=== PATIENT | male | born 1990 | race Caucasian/White ===

== ENCOUNTER 2017-06-10 16:32 | Emergency (ER) | payer MEDICAID, SELFPAY ==
[2017-06-10 16:33] VITALS: BP 131/77; PULSE 87; RESP 16; TEMP 36.6; O2SAT 99; BMI 22.1
--- NOTE | 2017-06-10 16:46 | ED.DCSUM_ITS ---
- ER Visit Summary Date of Service: 06/10/17 Chief Complaint: Eye redness, itching, drainage History of Present Illness: The patient is a 26 M who noted left eye irritation 2 days ago. Yesterday had redness and burning sensation in both eyes. He has had tearing and drainage. Eyelashes are matted when he wakes from sleep. He has had mild cough and runny nose recently. He has not been around anyone else with similar symptoms. He does not wear glasses or contacts. He states today his vision seems somewhat hazy. Physical Examination: Vital signs are unremarkable. Patient sitting in a well lit room in no acute distress. Head neck examination reveals eyelids to be unremarkable. He has diffuse bilateral conjunctival injection. He has tearing noted at this time. Pupils are equal and reactive with full extraocular movements. Heart is regular rate and rhythm. Lung sounds are clear. Test Results: [] Emergency Department Course and Treatment: The patient I believe he has conjunctivitis. This can be bacterial, viral, or allergic in nature. He will be treated with gentamicin eyedrops. He is referred to ophthalmology if not improving. Treatment Plan: [] Disposition: Discharge Impression: Bilateral conjunctivitis This note was generated with [employer] dictation software. It may contain incorrect words, spelling, and punctuation that were not noted in review of the chart prior to signing ED Disposition - Plan for ED Patient: Chief Complaint: Eye Problem Referrals: NOT,DEFINED [Primary Care Provider] -
--- NOTE | 2017-06-10 16:46 | ED.DEP ---
ED Disposition - Plan for ED Patient: Disposition: Home or Assisted Living Chief Complaint: Eye Problem Instructions: ED Conjunctivitis Nonspecific Referrals: Omar Beatty MD [STAFF PHYSICIAN] - 3-5 Days if not improving
--- OUTSIDE RECORDS SUMMARY | 2017-06-10 16:57 | XMS RPT_ITS ---
:1990 Author Organization [facility] Care Team Providers Name Role Phone Bridgett Brooks Attending Unavailable Primay Care Physicia, No Primary Care Unavailable PROBLEMS PROBLEMS No Problem Records FoundPROCEDURES PROCEDURES No Procedure Records FoundRESULTS RESULTS DISCHARGE INSTRUCTION Observed: 06/10/2017 Status: F Source: [facility]HA 4:46 PM [facility] REPOSITORY [facility] [id number] [place] [address]Xtttbhima Dwdkbkvxsua12/25/18 1646MR#: [id number] Acct: [id number]: JOSHUA PERRY Rep #: [id number]: 1990 26 From: Bridgett Brooks MDPCP: NOT, DEFINED Status: PRE ERED Disposition- Plan for ED Patient:Disposition: Home or Assisted LivingChief Complaint: Eye ProblemInstructions: ED Conjunctivitis NonspecificReferrals:Omar Beatty MD [STAFF PHYSICIAN] - 3-5 Days if not improvingWhat to do if you have ProblemsFor any increased pain, shortness of breath, bleeding, nausea or vomiting, chest pain, or anyunexpected problems, contact your Primary Care Provider. Call [facility] ([phone])or report to the closest Emergency Room.Call 911 if necessary.06/10/171645 <Electronically signed by Bridgett Brooks MD>Date Bridgett Brooks MDCosigner Signature (If Indicated): Date CC: DEFINED NOT ALLERGIES ALLERGIES DATE TYPE / CODE NAME / CODE REACTION SEVERITY SOURCE 06/10/2017 Drug No Known Unknown [facility] Allergy/4160 Allergies/F00 [facility] [address](SNOMED [id number](RXNOR Repository CT) M) ENCOUNTERS ENCOUNTERS ADMIT/DISCHARGE ACCOUNT ADMITTING ENCOUNTER LOCATION SOURCE NUMBER CLASS 06/10/2017 [id number] Emergency [facility] ing:ED Repository PAYERS PAYERS ENCOUNTER GUARANTOR PAYER SUBSCRIBER SOURCE 06/10/2017 JOSHUA Mcdonnell Primary JOSHUA M [place] [id number] Insurance:CARESOURCEP BRECAYDENERDOB: Community CARRIAGE [facility] Number: [id number] .Effective Repository [address]Izx: [phone] Date:2017-06-10P O [phone] () [address]ATTN: [place] [address]IC: 06/10/2017 Secondary NOT GIVENUNK [place] Insurance:SELF [facility]: Effective Repository Date:2017-06-10
[2017-06-10] MEDS: Gentamicin Sulfate 1 OPTH.BTL 2 DRP EACH EYE (17:16)
== END 2017-06-10 17:18 | disposition home or self-care (01) ==
LOC: ED 16:55
PROVIDERS: Emergency Provider Emergency Medicine
DX: H10.9 Unspecified conjunctivitis (principal)
CPT/HCPCS: 99282

== ENCOUNTER 2017-06-17 18:56 | Emergency (ER) | payer MEDICAID, SELFPAY ==
[2017-06-17 18:58] VITALS: BP 120/62; PULSE 87; RESP 17; TEMP 36.9; O2SAT 96; BMI 22.3
--- OUTSIDE RECORDS SUMMARY | 2017-06-17 19:30 | XMS RPT_ITS ---
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 Cannabinoid, Urine Result Comment: Tetrahydrocannabinol carboxylic acid (THCA) is a metabolite of cggpn-3-bdmfiudcyrrgsuzeenug which is the main active component of marijuana. Presence of THCA indicates use of marijuana. LAB UQCREA >19 mg/dL Creatinine, >50 Urine LAB UQPH 4-10 pH, Urine 4-10 LAB UQSPGR 1.005-1.020 Specific 1.005-1.020 [place] LAB UQOXID Negative Oxidants, Urine Negative LAB UQSPQ Specimen Specimen Quality quality results within acceptable limits. LAB UMNOTE Note This test is for Medical use only. Result Comment: This test was developed and its performance characteristics determined by [facility] Laboratory Medicine [place] ([facility]).It has not been cleared or approved by the FDA. [facility] is regulated under CLIA as qualified to perform high-complexity testing.This test is used for clinical purposes. It should not be regarded as investigational or for research. Performed By: #### [facility] ####[facility] [place], [place] [phone] OPIATE CONFIRM, UR Collected: 09/20/2016 Status: F Source: [place] 1:39 AM CLINIC OTHER CAMPUS REPOSITORY TYPE CODE TESTS RESULT OUT OF REFERENCE UNITS RANGE LAB UQACMR High <5 ng/mL 188 6-Acetylmorp betsy, Ur Result Comment: 6-MATEO (6-monoacetylmorphine, also known as 6-acetylmorphine) is a unique metabolite of heroin. Presence of 6-MATEO indicates use of heroin. 6-MATEO is further metabolized to morphine and absence of 6-MATEO does not rule out the use of heroin. LAB UQCODE High <11 ng/mL Codeine, Urine 60 Result Comment: Codeine is not a recognized metabolite of other opiates and its presence indicates use of a codeine containing drug. Codeine is metabolized to morphine. Illicit use of heroin is indicated when 1) both codeine and morphine are detected in urine, and 2) morphine concentration is over 15280 ng/mL, and 3) qdyouuwp-am-sclgpzr ratio is above 2. LAB UQMORP High <10 ng/mL Morphine, >5365 Urine Result Comment: Morphine may arise from morphine containing drugs, poppy seeds , or by metabolism of codeine and heroin. Morphine is metabolized to hydromorphone. LAB UQDCDN <5 ng/mL Dihydrocodeine, Ur <5 LAB UQHCOD <8 ng/mL Hydrocodone, Urine <8 Result Comment: Hydrocodone is a metabolite of dihydrocodeine. LAB UQOXYC <5 ng/mL Oxycodone, <5 Urine LAB UQHMOR <5 ng/mL Hydromorphone, <5 Ur Result Comment: Hydromorphone is a metabolite of hydrocodone. LAB UQOXYM <5 ng/mL Oxymorphone, Urine <5 Result Comment: Oxymorphone is a metabolite of oxycodone. LAB UQCREA >19 mg/dL Creatinine, >50 Urine LAB UQPH 4-10 pH, Urine 4-10 LAB UQSPGR 1.005-1.020 Specific 1.005-1.020 [place] LAB UQOXID Negative Oxidants, Urine Negative LAB UQSPQ Specimen Specimen Quality quality results within acceptable limits. LAB UPNOTE Note This test is for Medical use only. Result Comment: This test was developed and its performance characteristics determined by [facility] Pathology and Laboratory Medicine [place] ([facility]).It has not been cleared or approved by the FDA. [facility] is regulated under CLIA as qualified to perform high-complexity testing.This test is used for clinical purposes. It should not be regarded as investigational or for research. Performed By: #### OPICON ####[facility] [address] [place], [place] [phone] ED PROV NOTE Observed: 09/20/2016 Status: COMPLETED Source: [place] 1:32 AM CLINIC OTHER CAMPUS REPOSITORY HNO ID: [id number]: June Polanco, MDService: Emergency MedicineAuthor Type: PhysicianType: ED Provider NotesFiled: 09/20/2016 3:03 AMNote Text:ED Provider NotePatient Name: Joshua ZuñigaN: [id number] DATE: 09/20/16HistoryPatient presents with:UnresponsiveHPIThis is a 26-year-old heroin user who was found unresponsive by EMS. Hewas given 2 mg of Narcan and woke up completely. The patient denies usingany heroin today. He states that he bought a cigarette from someone andsmoked it, and that is all he remembers. He currently has no symptoms.PAST MEDICAL HISTORYDiagnosis Date- Attn deficit w/ hyperact- Back injury Pt was 14 years old, lower back pain- Bipolar I disorder, most recent episode ( or current) unspecified- Epilepsy (HCC)- History of kidney stones- Renal disorderPAST SURGICAL HISTORY11/04/2012: PAST SURGICAL HISTORY OF Comment: Repair of jaw fracture, placement of arch barsFAMILY HISTORY Hypertension Maternal Grandmother Hypertension Maternal Grandfather Stroke Maternal GrandfatherSocial History Marital status: Single Spouse name: Years of education: Number of children:Social History Main Topics Smoking status: Current Every Day Smoker Packs/day: 1.00 Years: 0.00 Types: Cigarettes Smokeless status: Never Used Alcohol use: No Drug use: Yes Special: Marijuana Comment: prior opiate addiction, sober since 02/21/2013 Sexual activity: Yes Comment : condoms all the timeSocial History Narrative Going into 12th grade, planning on playing hockey; considering going [employer] to be a nurse Lives w/grandparentsALLERGIESAllergen Reactions- Bees- Flexeril [Cyclobenz* Unknown- Tramadol RashReview of SystemsConstitutional: Negative for chills and fever.HENT: Negative for sore throat.Eyes: Negative for photophobia.Respiratory : Negative for cough and shortness of breath.Cardiovascular: Negative for chest pain.Gastrointestinal: Negative for abdominal pain, diarrhea, nausea andvomiting.Genitourinary: Negative for urgency.Musculoskeletal: Negative for back pain.Skin: Negative for rash.Neurological: Negative for dizziness, light- headedness and numbness.Psychiatric/Behavioral: Negative for confusion.All other systems reviewed and are negative.Physical ExamBP 145/97 Pulse 123 Temp (Src) 99.9 (Oral) Resp 13 Ht 6' 3(1.91m) Wt 175 lb (79.4kg) SpO2 93% BMI 21.87 kg/(m2).Physical ExamConstitutional: He is oriented to person, place, and time. He appearswell-developed.HENT:Head: Normocephalic.Eyes: Pupils are equal, round, and reactive to light.Neck: Normal range of motion.Cardiovascular: Normal rate and normal heart sounds.Pulmonary/Chest: Effort normal. No respiratory distress. He has nowheezes.Abdominal: Soft. He exhibits no distension. There is no tenderness.Musculoskeletal: Normal range of motion.Neurological: He is alert and oriented to person, place, and time.Skin: Skin is warm.Psychiatric: He has a normal mood and affect. His behavior is normal.Diagnostic TestingED Labs Ordered and ReviewedURINE DRUG SCREEN (AV,EU,FV,HL,BALDO,MM,SP) - Abnormal; Notable for thefollowing: Result Value Ref Range Cocaine Urine Positive (*) Negative THC Positive (*) Negative Opiates Positive (*) Negative All other components within normal limitsCOCAINE CONFIRMATION UR (BALDO,MM)CANNABINOID CONF UR (BALDO,MM)OPIATES CONFIRMATION UR (BALDO,MM)ProceduresMedical Decision Making / ED CourseED CourseThe patient was monitored without event.Encounter Diagnosis ICD-10-CM1. Heroin overdose, accidental or unintentional, initial [id number]: Aashish Neri MD09/20/16 0303 ED NOTE Observed: 09/20/2016 Status: COMPLETED Source: [place] 1:26 AM CLINIC OTHER CAMPUS REPOSITORY HNO ID: [id number]: Ariadne (Rn) TERRI Bedoyaervice : (none)Author Type: Registered NurseType: ED NotesFiled: 09/20/2016 1:29 AMNote Text:Patient arrived to the ED via squad unresponsive squad administered narcan2 doses. Patient stated I bummed a cigarette off of someone one the streetand I woke up in the squad I think it may have been laced with something.Patient is a heroine user but states in recovery currently. Patient deniestaking any drugs or medications and denies any chest pain and SOB.Pulse (!) 123 Temp (!) 37.7 ?C (99.9 ?F) (Oral ) Resp 13 Ht 190.5 cm(6' 3) Wt 79.4 kg (175 lb) SpO2 (!) 93% BMI 21.87 kg/m2 BP 145/97Plan of care-Monitor Patient's Vital Signs for changes in condition- Monitor patient for changes in pain-Maintain patient safety and privacy-Provide comfort measures-Call light in placeSiderails up, bed in locked and low position ED NOTE Observed: 09/20/2016 Status: COMPLETED Source: [place] 1:21 AM [facility] REPOSITORY HNO ID: [id number]: Ariadne (Rn) TERRI Bedoyaervice : (none)Author Type: Registered NurseType: ED NotesFiled: 09/20/2016 2:45 AMNote Text: Patient spo2 low at 93% applied 2L NC ED NOTE Observed: 09/15/2016 Status: COMPLETED Source: [place] 1:48 AM [facility] REPOSITORY HNO ID: [id number]: Vonnie Bonilla (Rn) TERRI Dumontervice: (none)Author Type: Registered NurseType: ED NotesFiled: 09/15/2016 1:48 AMNote Text:D/c instructions reviewed with pt. Pt verbalized understanding ofdiagnosis, treatment, importance of follow-up, and s/s that would warranta return to the ED. ED PROV NOTE Observed: 09/15/2016 Status: COMPLETED Source: [place] 12:48 AM [facility] REPOSITORY HNO ID: [id number]: Francis Rucker, DOService: (none)Author Type: PhysicianType: ED Provider NotesFiled: 09/16/2016 9:51 AMNote Text:ED Provider NotePatient Name: Joshua Casiano: [id number] DATE: 09/14/16HistoryPatient presents with:OverdoseHPI Comments: 26 year old male past medical history of bipolar disorderADHD chronic low back pain tobacco abuse, history of opiate addictionincluding heroin abuse presents with concern for substance overdose.Patient states he bough two hand rolled cigarettes from individual andstarted smoking one of them and the next thing he remembers is waking upwith paramedics at his side. He did require 2 mg of narcan to regainnormal level of consciousness. Patient denies complaints upon arrivalincluding chest pain, dyspnea, abdominal pain, fever, chills, sweats, orMSK pain. No recent illness. Patient currently on suboxone. Denies SI.History provided by: PatientLanguage principal electrical engineer used: NoPAST MEDICAL HISTORYDiagnosis Date- Attention deficit disorder with hyperactivity(314.01)- Back injury Pt was 14 years old, lower back pain- Bipolar I disorder, most recent episode (or current) unspecified- Epilepsy (HCC)- History of kidney stones- Renal disorderPAST SURGICAL HISTORY11/04/2012: PAST SURGICAL HISTORY OF Comment: Repair of jaw fracture, placement of arch barsFAMILY HISTORY Hypertension Maternal Grandmother Hypertension Maternal Grandfather Stroke Maternal GrandfatherSocial History Marital status: Single Spouse name: Years of education: Number of children:Social History Main Topics Smoking status: Current Every Day Smoker Packs/day: 1.00 Years: 0.00 Types : Cigarettes Smokeless status: Never Used Alcohol use: No Drug use: Yes Special: Marijuana Comment: prior opiate addiction, sober since 2012 Sexual activity: Yes Comment: condoms all the timeSocial History Narrative Going into 12th grade, planning on playing hockey; [facility] [facility] [employer] [facility] Lives w/grandparentsALLERGIESAllergen Reactions- Bees- Flexeril [Cyclobenz* Unknown- Tramadol RashReview of SystemsConstitutional: Negative.HENT: Negative.Eyes: Negative.Respiratory: Negative.Cardiovascular: Negative.Gastrointestinal: Negative.Genitourinary: Negative.Musculoskeletal: Negative.Skin: Negative.Neurological: Negative.Psychiatric/Behavioral: Negative.Physical ExamBP 158/91 Pulse 107 Resp 20 Ht 6' 0 (1.83m) Wt 150 lb (68.0kg) SpO2 97% BMI 20.34 kg/(m2).Physical ExamConstitutional: He is oriented to person, place, and time. He appearswell-developed and well-nourished.HENT:Head: Normocephalic and atraumatic.Eyes: Conjunctivae and EOM are normal. Pupils are equal, round, andreactive to light. No scleral icterus.Neck: Normal range of motion. Neck supple.Cardiovascular: Regular rhythm, normal heart sounds and intact distalpulses. Exam reveals no gallop and no friction rub.No murmur heard.Tachycardic ratePulmonary/Chest: Effort normal and breath sounds normal. No respiratorydistress. He has no wheezes. He has no rales. He exhibits no tenderness.Abdominal: Soft. Bowel sounds are normal. He exhibits no distension and nomass. There is no tenderness. There is no rebound and no guarding.Musculoskeletal: Normal range of motion. He exhibits no edema ortenderness.Lymphadenopathy: He has no cervical adenopathy.Neurological: He is alert and oriented to person, place, and time. Nocranial nerve deficit.Skin: Skin is warm and dry. No rash noted. No erythema.Psychiatric: He has a normal mood and affect. His behavior is normal.Nursing note and vitals reviewed.Diagnostic TestingED Labs Ordered and ReviewedCBC + AUTO DIFF (AV,EU,FV,HL,BALDO,MM,SP)COMPREHENSIVE METABOLIC PANEL (AV,EU,FV,HL,BALDO,MM,SP) WBC 21EKG ordered and interpreted as sinus tachycardia rate of 107 noappreciable acute ischemic changesProceduresMedical Decision Making / ED CourseIV startedTreated with IV fluidsNursing notes and vital signs reviewedTriage notes reviewedPlaced on cardiac monitorED CourseTachycardic upon arrival. Alert and oriented. No complaints. Normal levelof consciousness upon arrival. No evidence of traumatic injury. Physicalexam unremarkable other than tachycardia. EKG confirms sinus tachycardia.Treated with IV fluids with improvement of pulse. Bloodwork with elevatedWBC and mildly elevated liver enzymes. No evidence of bacterial infectionclinically in regards to leukocytosis. Skin without abscess/cellulitis,lungs clear, abdomen benign, denies change in urine or bowel habits.Leukocytosis possibly stress response. Leukocytosis possibly secondary tostress response. Patient monitored in dept for over two hours withimprovement of heart rate and no depression of mental status orrespiratory status. No complaints on serial re-examinations. Dischargehome in stable condition with f/up by PCP within 2-3 days and previouslyest GI specialist for elevated liver enzymes monitoring. Returnimmediately with any nwe worsening or concerning symptoms. Patient updatedand agreeable to plan. All questions answered at bedside. Discharge home.Encounter Diagnosis ICD-10-CM1. Opiate overdose, accidental or unintentional, initial rmdskilrzS29.601APlanThe Patient was DISCHARGED: Counseled patient regarding lab results ANDneed for follow-up. Discharged home with verbal and written instructions.They were instructed to return as needed for persistent or worseningsymptoms or any new concerns.Condition at time of disposition: stableSIGNATURE: Geronimo Ashley, DO09/16/16 0951 COMP METABOLIC PANEL Collected: 09/15/2016 Status: F Source: [place] 12:27 AM CLINIC OTHER CAMPUS REPOSITORY TYPE CODE TESTS RESULT OUT OF REFERENCE UNITS RANGE LAB TP 6.6-8.7 g/dL Protein, Total 7.8 LAB ALB 4.0-4.9 g/dL Albumin 4.7 LAB CA 8.5-10.2 mg/dL Calcium, Total 9.0 LAB TBIL 0.0-1.2 mg/dL Bilirubin, 0.3 Total LAB ALKP 40-130 U/L Alkaline 59 Phosphatase LAB AST High 0-40 U/L AST 45 LAB GLU High 74-99 mg/dL Glucose 125 LAB BUN 6-20 mg/dL BUN 15 LAB CRET 0.67-1.17 mg/dL Creatinine 1.02 LAB NA 136-144 mmol/L Sodium 143 LAB K 3.4-4.5 mmol/L Potassium 3.5 LAB CL 98-107 mmol/L Chloride 104 LAB CO2 22-29 mmol/L CO2 25 LAB AGAP 0-15 mmol/L Anion Gap 14 LAB ALT High 0-41 U/L ALT 99 LAB GFRAA >60 eGFR- Amer. >60 LAB GFRNAA >60 . eGFR-All Other Races >60 Result Comment: eGFR (Estimated GFR) Units of measure: mL/min/1.73 meters squaredeGFR is derived from the 4 variable MDRD equation for glomerular filtration rate ( GFR) based on a stable serum creatinine, gender, and age.According to KDOQI guidelines, an eGFR <60 mL/min/1.73m2 is sufficient to diagnose a patient with chronic kidney disease. Performed By: #### CMP, CBCDIF ####[facility] [place], [place] [phone] CBC AND DIFFERENTIAL Collected: 09/15/2016 Status: F Source: [place] 12:27 AM CLINIC OTHER CAMPUS REPOSITORY TYPE CODE TESTS RESULT OUT OF REFERENCE UNITS RANGE LAB WBC High 3.70-11.00 k/uL WBC 21.05 LAB RBC 4.20-6.00 m/uL RBC 4.22 LAB HGB Low 13.0-17.0 g/dL Hemoglobin 12.8 LAB HCT 39.0-51.0 % Hematocrit 39.7 LAB MCV 80.0-100.0 fL MCV 94.1 LAB MCH 26.0-34.0 pG MCH 30.3 LAB MCHC 30.5-36.0 g/dL MCHC 32.2 LAB RDWCV 11.5-15.0 % RDW-CV 14.2 LAB PLTCT 150-400 k/uL Platelet 222 Count LAB MPV 9.0-12.7 fL MPV 10.7 LAB NEUT % Neut% 88 LAB LYMPH % Lymph% 6 LAB PMON % [place]% 5 LAB MYELO % Myelo% 1 LAB ABNEUT High 1.9-8.0 k/uL Abs Neut 18.52 LAB ABLYM 0.9-5.2 K/uL Abs Lym 1.26 LAB ABMONO High 0.16-1.00 k/uL Abs [place] 1.05 LAB RBCMOR Red Cell SEE Morph COMMENT Result Comment: Normal LAB LFTIMI Left Shift Present LAB PLTEST Platelet Platelet Estimate estimate adequate Performed By: #### CMP, CBCDIF ####[facility] [place], [place] [phone] ED NOTE Observed: 09/14/2016 Status: COMPLETED Source: [place] 11:19 PM [facility]INIC OTHER [place] REPOSITORY HNO ID: [id number]: Reji (Rn) Elbert Paredesice: (none)Author Type: Registered NurseType: ED NotesFiled: 09/14/2016 11:20 PMNote Text:Pt arrives via EMS after drug overdose. Pt denies using heroin. States hebought a cigarette from someone. Ems states pt became responsive afterreceiving 2mg Narcan. Pt alert and oriented upon arrival to ED. Policeofficers at bedside.Plan of care-Monitor Patient's Vital Signs-Monitor pain-Maintain patient safety and privacy-Provide comfort measures as needed-Call light in place-Siderails up, bed in locked and low position. ED NOTE Observed: 09/14/2016 Status: COMPLETED Source: [place] 11:14 PM CLINIC OTHER CAMPUS REPOSITORY HNO ID: [id number]: Mireya Mcdonnell (Rn) Elbert Benoitice: (none)Author Type: Registered NurseType: ED NotesFiled: 09/14/2016 11:14 PMNote Text:Bed: ED-01Expected date:Expected time:Means of arrival:Comments:EMS EKG Observed: 08/06/2016 Status: F Source: [facility] 2:15 PM [facility] REPOSITORY Acquired on 08/03/2016 1237Vent. Rate : 071 BPM Atrial Rate : 071 BPMP-R Int : 162 ms QRS Dur : 084 msQT Int : 378 ms P-R-T Axes : 048 086 074 degreesQTc Int : 410 msNormal sinus rhythmLow voltage QRSBorderline ECGWhen compared with ECG of 11-JUL-2016 15:08,No significant change was foundConfirmed by JAYANT LEYVA MD ([id number]) on 08/06/2016 2:15:56 PMReferred By: Confirmed By: JAYANT CHING [id number] 2016 --------[facility] PT NAME: JOSHUA PERRY MMR#: [id number] [place] [address] ACCT: [id number]: 91EKG REPORT EKG Observed: 08/06/2016 Status: F Source: [facility] 2:15 PM [facility] REPOSITORY Acquired on 08/03/2016 [address]. Rate : 071 BPM Atrial Rate : 071 BPMP-R Int : 162 ms QRS Dur : 084 msQT Int : 378 ms P-R-T Axes : 048 086 074 degreesQTc Int : 410 msNormal sinus rhythmLow voltage QRSBorderline ECGWhen compared with ECG of 11-JUL-2016 15:08,No significant change was foundConfirmed by JAYANT LEYVA MD ([id number]) on 08/06/2016 2:15:56 PMReferred By: Confirmed By: JAYANT CHING [id number] 2016 --------[facility] PT NAME: JOSHUA PERRY MMR#: [id number] [place] [address] ACCT: [id number]: 91EKG REPORT COMP META PANEL Collected: 08/03/2016 Status: F Source: [facility] 12:52 PM [facility] REPOSITORY Order Comment: CONSERVATION TYPE CODE TESTS RESULT OUT OF RANGE REFERENCE UNITS LAB L500.94916 Normal 136-145 mmol/L NA 140 LAB L500.47052 Normal 3.5-5.1 mmol/L K 4.7 LAB L500.27576 High 98-107 mmol/L CL 108 LAB L500.02108 Normal 21-32 mmol/L CO2 29 LAB L500.90351 Normal 74-106 mg/dL GLU 75 LAB L500.47460 High 7-18 mg/dL BUN 26 LAB L500.93504 Normal 0.700-1.300 mg/dL CREAT 0.965 LAB L500.23757 Normal 6.4-8.2 gm/dL TP 7.3 LAB L500.06009 Normal 3.4-5.0 gm/dL ALB 3.6 LAB L500.62753 Normal 8.5-10.1 mg/dL CA 8.8 LAB L500.75156 Normal 0.2-1.0 mg/dL BILI 0.5 TOTAL LAB L500.00421 High 15-37 U/L AST 44 LAB L500.27427 Normal 13-61 U/L ALT 60 LAB L500.93320 Normal 45-117 U/L ALK 84 PHOS TOTAL Performed By: #### L500.73949, L500.02925 ####Test performed at: [place] [address] GFR ESTIMATE Collected: 08/03/2016 Status: F Source: [facility] 12:52 PM [facility] REPOSITORY Order Comment: CONSERVATION TYPE CODE TESTS RESULT OUT OF RANGE REFERENCE UNITS LAB L500.60470 Normal > 60 IF > non-AFR AMER 60 LAB L500.23866 Normal > 60 IF > AMER 60 Result Comment: eGFR (Estimated GFR) Units of measure:mL/min/1.73 meters sq.*CALCULATION REVISED 01/05/2015;IDMS-traceable MDRD equationeGFR is derived from the reexpressed MDRD Study equationusing the following parameters: serum creatinine, age,gender and race. An eGFR<60 mL/min/1.73m2 for >3 monthsis consistent with chronic kidney disease. Refer to KDOQIguidelines for clinical interpretation. Performed By: #### L500.57113, L500.96921 ####Test performed at: [place] [address] CBC W/DIFF Collected: 08/03/2016 Status: F Source: [facility] 12:52 PM [facility] REPOSITORY Order Comment: CONSERVATION TYPE CODE TESTS RESULT OUT OF RANGE REFERENCE UNITS LAB L200.22349 High 3.9-11.0 K/uL WBC 11.5 LAB L200.25452 Normal 3.5-5.5 M/uL RBC 4.25 LAB L200.06609 Low 14.0-16.5 g/dL HGB 12.6 LAB L200.25579 Low 39.0-55.0 % HCT 38.4 LAB L200.60946 Normal 80.0-100.0 fL MCV 90.4 LAB L200.95252 Normal 25.4-34.6 pg MCH 29.6 LAB L200.76844 Normal 31.5-36.5 g/dL MCHC 32.8 LAB L200.78960 Normal 11.5-14.5 % RDW 14.1 LAB L200.12722 Normal 140-440 K/uL PLT 238 LAB L200.60732 Normal 8.7-12.4 fL MPV 9.9 LAB L200.54138 Normal 0-0.2 /100 WBC NRBC 0.0 % LAB L200.48376 Normal 0-0.012 K/uL NRBC 0.000 # Performed By: #### L200.94602, L200.59647, L200.57656 ####[place] performed [place]: [place] [id number] MANUAL DIFF Collected: 08/03/2016 Status: F Source: [facility] 12:52 PM [facility] REPOSITORY Order Comment: CONSERVATION TYPE CODE TESTS RESULT OUT OF RANGE REFERENCE UNITS LAB L200.37709 Normal #CELLS TOTAL CELLS 100 LAB L200.94980 Low 40-80 % NEUTROPHIL 30 LAB L200.41269 High 0-5 % BAND 23 LAB L200.67199 Normal 20-50 % LYMPH 41 LAB L200.73262 Normal 2-12 % MONOCYTE 5 LAB L200.29576 Normal 0-5 % EOS 1 LAB L200.46181 Normal RBC COMMENTS NORM MORPH LAB L200.41769 Normal RLYMPH 3+ LAB L200.04468 Normal PLT EST ADEQ Performed By: #### L200.02728, L200.17916, L200.45697 ####Test performed at: [place] [address] SMEAR REVIEW Collected: 08/03/2016 Status: F Source: [facility] 12:52 [facility] REPOSITORY Order Comment: CONSERVATION TYPE CODE TESTS RESULT OUT OF RANGE REFERENCE UNITS LAB L200.40362 Normal SMEAR REVIEW Result Comment: Reactive lymphocytosis.MD LASHAY Performed By: #### L200.64459, L200.37918, L200.97484 ####Test performed at: [place] [address] EKG Observed: 08/03/2016 Status: P Source: [facility] 12:42 [facility] REPOSITORY This is a preliminary report only. This report will be final only after practitioner review and authentication has occurred.Acquired on 2016 1237Vent. Rate : 071 BPM Atrial Rate : 071 BPMP-R Int : 162 ms QRS Dur : 084 msQT Int : 378 ms P-R-T Axes : 048 086 074 degreesQTc Int : 410 msNormal sinus rhythmLow voltage QRSBorderline ECGWhen compared with ECG of 11-JUL-2016 15:08,No significant change was foundReferred By: Confirmed By:[id number] 2017 --------[facility] PT NAME: JOSHUA PERRY [facility]#: [id number] [place] [address] ACCT: [id number]: 91EKG REPORT MANDIBLE < 4 VIEWS Observed: 08/03/2016 Status: F Source: [facility] 12:27 PM [facility] REPOSITORY STUDY:MANDIBLE < 4 VIEWS; 08/03/2016 1:37 pmINDICATION: pain .COMPARISON:X-ray mandible 07/11/2016ACCESSION NUMBER(S):[id number] CLINICIAN:Ke GarciaFINDINGS:Interval placement of mandibular and maxillary arch bars. Previouslysuspected left mandibular ramus fracture is less conspicuoussuggesting some healing. No new fractures.IMPRESSION:Healing left mandibular ramus fracture. No new mandibular fracturesidentified. PORTABLE CHEST Observed: 08/03/2016 Status: F Source: [facility] 12:25 PM [facility] REPOSITORY STUDY:PORTABLE CHEST; 08/03/2016 12:40 pmINDICATION:cough .COMPARISON:None. CLINICIAN:Ke GarciaTECHNIQUE:A portable radiograph of the chest is performed.FINDINGS:The heart is of normal size and contour. The pulmonary vessels arewithin normal limits. The lungs and the pleural spaces are clear.There is no pneumothorax. The osseous structures are intact.IMPRESSION:No sign of acute cardiopulmonary disease. EKG Observed: 08/03/2016 Status: P Source: [facility] 12:25 PM [facility] REPOSITORY This is a preliminary report only. This report will be final only after practitioner review and authentication has occurred.Acquired on 2016 1237Vent. Rate : 071 BPM Atrial Rate : 071 BPMP-R Int : 162 ms QRS Dur : 084 msQT Int : 378 ms P-R-T Axes : 048 086 074 degreesQTc Int : 410 msNormal sinus rhythmLow voltage QRSBorderline ECGWhen compared with ECG of 11-JUL-2016 15:08,No significant change was foundReferred By: Confirmed By:[id number] 2016 --------[facility] PT NAME: JOSHUA PERRY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
--- NOTE | 2017-06-17 19:34 | ED.DCSUM_ITS ---
- ER Visit Summary Date of Service: 06/17/17 Chief Complaint: Bilateral eye pain History of Present Illness: The patient is a 27 M with 1 week of gradual onset bilateral eye burning pain, redness, clear discharge, photophobia, and bilateral swelling of eyelids diffusely. Started on the left, then within a day was on both sides. He has not had any cold symptoms, but when his eyes water it leads to a clear rhinorrhea. He was seen here about 2 days into the symptoms and prescribed some eyedrops, he states they are not helping at all and he is now worse. No new symptoms. He does have foreign body sensation bilaterally. He denies having any injury. He does not wear contacts or glasses. Physical Examination: Afebrile, vital signs are normal. He is in the dark and does have significant photophobia with blepharospasm bilaterally. Mild diffuse eyelid swelling. Palpebral and bulbar conjunctival injection. No chemosis. PERRLA, EOMI without pain or entrapment. No sinus tenderness. Cervical lymphadenopathy. Test Results: n/a Emergency Department Course and Treatment: Visual acuity 20/25 and 20/40. The patient concurs that his vision seems blurry when there is discharge in his eyes but otherwise is okay. Tetracaine definitely helped his discomfort. However his photophobia makes iritis included in the differential. He did have a difficult time with slit-lamp exam, having to withdrawal from the machine repeatedly, and needed my help to prevent blepharospasm during exam. Although the exam is limited, both corneas and anterior chambers look normal. Fluorescein dye was also used and I saw no uptake or evidence of a foreign body. His symptoms and findings are consistent with conjunctivitis as well. He feels like the gentamicin drops he has been using are making things worse. Again, the differential does include all causes of conjunctivitis, viral, bacterial, and allergic. He has clear discharge and it does not appear to be purulent in any way. Given the fact that gentamicin is making things worse I recommend discontinuing it, it is certainly possible he is having a reaction to it, and I will put him on Patanol drops with referral to ophthalmology if he does not improve. Treatment Plan: Patanol 0.1% solution 1 drop twice daily Disposition: Discharge home Impression: Bilateral conjunctivitis This note was generated with Pristine.ioation software. It may contain incorrect words, spelling, and punctuation that were not noted in review of the chart prior to signing ED Disposition - Plan for ED Patient: Disposition: Home or Assisted Living Chief Complaint: Eye Problem Instructions: ED Allergic Conjunctivitis Prescriptions: Olopatadine HCl [Patanol] 1 drp EACH EYE BID #1 bottle Referrals: Care Physician,No Primary [Primary Care Provider] - Saurabh Crane MD [STAFF PHYSICIAN] - 3-5 Days if not improving Additional Instructions: Discontinue the gentamicin eyedrops you were given this past week
[2017-06-17] MEDS: Tetracaine 0.5% Ophthalmic Bottle 3 DRP EACH EYE (19:46)
[2017-06-17] MEDS: Fluorescein 1 MG STRIP 1 STRIP EACH EYE (20:30)
[2017-06-17 21:07] VITALS: BP 125/69; PULSE 72; RESP 16; O2SAT 96
[2017-06-17 21:33] VITALS: RESP 16
== END 2017-06-17 21:33 | disposition home or self-care (01) ==
PROVIDERS: Emergency Provider Emergency Medicine
DX: H10.9 Unspecified conjunctivitis (principal); Z72.0 Tobacco use
CPT/HCPCS: 99283

== ENCOUNTER 2018-06-14 13:27 | Inpatient (IN) | payer MEDICAID, SELFPAY ==
[2018-06-14 13:46] VITALS: BMI 19.6
--- NOTE | 2018-06-14 13:46 | HP.PCM_ITS ---
Problem List (1) Opiate withdrawal Status: Acute (2) Polysubstance abuse Status: Chronic (3) Heroin abuse Status: Chronic (4) Cocaine abuse Status: Chronic (5) Methamphetamine abuse Status: Chronic (6) Inhalant abuse Status: Chronic (7) Tobacco use Status: Chronic (8) Hepatitis C Status: Chronic Qualifiers: Viral hepatitis chronicity: unspecified Hepatic coma status: without hep atic coma Qualified Code(s): B19.20 - Unspecified viral hepatitis C without hepatic coma (9) History of benzodiazepine use Status: Chronic History of Present Illness Date of Admission: 06/14/18 Chief Complaint: Acute Opiate Withdrawal The patient is a 28 y/o M w/ PMHx: Hepatitis C, Tobacco use, Prior Seizures with BZD withdrawal, Anemia Unclear Type, Polysubstance abuse specifically ongoing usage Heroin IV 2-3 gm daily (last use 06/13/18 7 pm), Cocaine IV (last use 2 days prior, 0.3 gm normal), Methamphetamine IV (last use 06/11/18, 2 gm normal), History of K2 (smoke, last use 14 months), History of Duster inhalation (inhalation, last use 2 months), History of Prior BZD abuse, specifically Xanax, snorted (8 mg daily, last use 5 months prior) who presents to [facility] on 06/14/18 w/ noted opiate withdrawal onset starting 06/14/18 early following last dose Heroin IV 06/13/18 7pm with abdominal pain/cramping, generalized body aches and pains, rhinorrhea, piloerection, fatigue, restless leg, sweating, yawning. Patient interested in attaining clean status. He notes having been hospitalized and also in outpatient treatment programs prior. He notes most recently he had been clean for ~ 8 months but relapsed in September 2017 and prior to this the longest has been the summer prior for 11 months. 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 Discussed with [facility] staff and patient will be set-up for transition to outpatient program on Sunday once he completes the inpatient treatment. Discussed concerns about returning to his current job given this is a high drug usage environment for him and he notes intention to discontinue. Past Medical History Past Medical History (Chronic Problems): Chronic Problems Polysubstance abuse (Chronic) Heroin abuse (Chronic) Cocaine abuse (Chronic) Methamphetamine abuse (Chronic) Inhalant abuse (Chronic) Tobacco use (Chronic) Hepatitis C (Chronic) History of benzodiazepine use (Chronic) Home Medications: Ambulatory Orders Medication Instructions Recorded NK 06/14/18 Surgical History: - - Patient notes prior jaw surgery, had wired shut as well. Psychiatric History: No pertinent psych hx Lives: Homeless - Patient currently residing in a drug house for the last several years, notes that he still has work however in construction. Smoking Status: Current every day smoker - 1 pack/day cigarette tobacco usage ongoing. Tobacco Use: Cigarettes Alcohol: Occasional - Patient drinks wine very sparingly he notes. Drugs: - - Polysubstance abuse including history of snorted Xanax, K2 as well as Duster and ongoing usage of IV heroin, IV cocaine, IV methamphetamines. - *Family History Maternal History Items: - - Patient notes a maternal and paternal family history of substance abuse including heroin, meth and cocaine. His mother has currently been clean and sober for several years and lives with his grandmother. Paternal History Items: - - Patient notes a maternal and paternal family history of substance abuse including heroin, meth and cocaine. Patient notes that his father passed secondary to complications related with drug abuse. Review of Systems Constitutional: Reports: Anorexia, Chills, Malaise, Weakness, Fatigue. Denies: Fever, Weight Change HEENT: Reports: - - Rhinorrhea, frequent yawning.. Denies: Head Aches, Sinus Congestion, Sinus Drainage Cardiovascular: Denies: Chest Pain, Palpitations Respiratory: Reports: Shortness of breath upon exertion. Denies: Cough, Shortness of breath at rest, Sputum production Gastrointestinal: Reports: Abdominal Pain - Abdominal pain, cramping primarily.. Denies: Diarrhea, Nausea, Vomiting Genitourinary: Denies: Dysuria Musculoskeletal: Reports: Joint Pain, Muscle pain. Denies: Joint Tenderness Skin: Reports: Skin Changes. Denies: Rash, Wounds Neurological: Denies: Numbness, Tingling, Focal weakness Psychiatric: Denies: Anxiety, Depression, Homicidal Ideations, Suicidal Ideations Hematologic/ Lymphatic: Reports: Anemia. Denies: Easy Bruising, Easy Bleeding VTE Information - Inpt Only VTE Present on Admission: No VTE Mechan Device Prophylaxis: None Reason prophylaxis not ordered:: Treatment Not Indicated - Low risk, ambulation encouraged. Patient Problems: Active and Suspected Problems Opiate withdrawal (Acute) Subjective: Seated upright, agitated, moving a lot, yawning frequently, eyes tearing, obvious withdrawal symptoms. Objective: Physical Examination: General: awake, alert, oriented x 3 and cooperative, seated upright, mildly agitated, picking, moving frequently, yawning, ice tearing, obvious withdrawal acutely. Skin: normal color, turgor, no icterus, cyanosis, several tattoos, bilateral antecubital fossa is most recent areas of intravenous drug use with no evidence of. HEENT: AT/NC, EOMI, PERRLA, dry MM, no carotid bruits or JVD noted. Lungs: Diminished breath sounds bilateral bases, moderate effort, no rales, rhonchi or wheezing noted. Heart: Tachycardic with regular rhythm; no gallop, rub audible. Abdomen: soft, NTTP, ND, Moore hyperactive BS, + HM. Extremities: no cyanosis, clubbing, or edema, see skin. Neurological: patient awake, alert, oriented x 3; cognitive function intact; pupils equally reactive to light and accomodation; cranial nerves II-XII grossly normal, moving all 4 extremities, no focal deficits, strength moderately globally decreased secondary to acute mentation and acute opiate withdrawal. Psychiatric: affect appears to be agitated, she is appearing, no acute evidence of depressive feelings. Assessment/Plan All Active Problems Opiate withdrawal (Acute) The patient is a 28 y/o M w/ PMHx: Hepatitis C, Tobacco use, Prior Seizures with BZD withdrawal, Anemia Unclear Type, Polysubstance abuse who presents to the [facility] at [facility] on 06/14/18 w/ noted opiate withdrawal onset. (1) Acute Opiate Withdrawal: Will admit to [facility], obtain routine labs including CBC, CMP, urine for drug screen, urinalysis, serum lipase, routine EKG given cocaine use and will initiate and continue on [facility] service protocol with tapering course of Subutex, as needed Seroquel, Librium, Sinemet, Catapres, Bentyl, Vistaril, IV fluids, IV antiemetics, Tylenol as needed for pain. Once patient clinically improved and completion of taper nearing will plan [facility] assistance for transition to next level of rehabilitation care. Given notable history of usage, confirmed per patient that he has not been using BZD as we discussed this is a withdrawal protocol that must be set-up with an outpatient physician to assure appropriate taper regimen. (2) Polysubstance Abuse, IVDA Hx, History of Hepatitis C, Chronic: Patient currently not candidate for hep C treatment currently as needs to be clean, sober x 6 months, documented attendance NA or AA meetings, counseling and ongoing negative drug screens. Once appropriate GI, ID to initiate. HIV, hepatitis panel to assess for co-infection pending. Encouraged PCP establishment and follow-up. (3) Tobacco Abuse: Encouraged cessation, inpatient consultation per RT, NR if desired. (4) Anemia, Normocytic: Admission Hgb 10.9, normal MCV, will obtain iron panel, ferritin, folic acid, vitamin B12 levels. (5) DVT Prophylaxis: Low risk, ambulation. Code Visit Inpatient E&M: 62420 Init Hosp L3
[2018-06-14 13:59] VITALS: BP 140/69; PULSE 79; RESP 18; TEMP 36.9; O2SAT 97
[2018-06-14 14:00] VITALS: BP 140/69; PULSE 79; RESP 16; TEMP 36.9
[2018-06-14] MEDS: Buprenorphine HCl 2 MG TAB.SUBL SL ×2 (14:22→21:28)
[2018-06-14] MEDS: Methocarbamol 750 MG Tablet PO (14:22)
[2018-06-14] MEDS: chlordiazePOXIDE 25 MG Capsule PO ×3 (14:22→21:31)
[2018-06-14] MEDS: Lactated Ringers 1,000 ML 125 ML IV (14:44)
[2018-06-14 15:02] LABS: Absolute Lymphocyte Count 1.51 X10^3/ul (0.83-4.51); Absolute Neutrophil Count 6.2 X10^3/uL (2.0-7.7); Basophil# 0.09 X10^3/uL; Basophil% 1.1 % (0-1); Eosinophil# 0.27 X10^3/uL; Eosinophils% 3.2 % (0-5); Hematocrit 35.1 % (40-54); Hemoglobin 10.9 g/dl (13.0-16.5); Lymphocyte # 1.51 X10^3/ul (4.0); Lymphocyte % 17.9 % (19-41); Mean Corp Hgb Conc 31.1 g/gl (32-36); Mean Corpuscular Hgb 28.6 pg (27.0-32.0); Mean Corpuscular Volume 92.1 fL (80-94); Mean Platelet Vol. 9.8 fl (6.2-12.0); Monocyte# 0.37 X10^3/uL; Monocyte% 4.4 % (0-10); Neutrophil # 6.19 X10^3/uL (2.7-7.7); Neutrophil % 73.3 % (47-70); POSITIVE COUNT NO; POSITIVE DIFFERENTIAL NO; POSITIVE MORPHOLOGY NO; Platelet Count 280 K/mm3 (150-450); RBC Distribution Width CV 15.4 % (11.6-14.6); RBC Distribution Width SD 51.8 fl (35.1-43.9); Red Blood Count 3.81 M/mm3 (4.6-6.2); White Blood Count 8.4 K/mm3 (4.4-11.0)
[2018-06-14 15:06] LABS: International Normalized Ratio 1.1; Prothrombin Time (Protime)PT. 13.7 SECONDS (11.7-14.9)
[2018-06-14 15:07] LABS: AST(SGOT) 22 U/L (15-37); Alanine Aminotransfer ALT/SGPT 30 U/L (16-61); Albumin, Serum 3.2 g/dL (3.2-5.0); Alkaline Phosphatase 62 U/L (45-117); Anion Gap 3 (5-15); BUN 14 mg/dL (7-18); BUN/Creat Ratio 17.6 RATIO (10-20); Calcium,Total 8.3 mg/dL (8.5-10.1); Chloride 111 mmol/L (98-107); EST Glomerular Filtration Rate 124 mL/min (>60); Est Glom Filt Rate - Afr Amer 150 mL/min (>60); Estimated Creatinine Clearance 139.68 ml/min; Globulin 3.2 g/dL (2.2-4.2); Glucose 117 mg/dL (74-106); Lipase 114 U/L (73-393); Protein, Total 6.4 g/dL (6.4-8.2); Sodium Level 140 mmol/L (136-145)
[2018-06-14 15:40] LABS: Alcohol, Blood (Medical)-Serum < 3.0 mg/dL
[2018-06-14 16:08] LABS: Ferritin 53 ng/mL (26-388); Iron 50 ug/dL (65-175); Iron Binding Capacity,Total 256 ug/dL (250-450); PERCENT IRON SATURATION 19.5 % (15.0-55.0)
--- NOTE | 2018-06-14 16:08 | NEWVISION ---
Patent has tentative aftercare plan at [facility], a 9 month program with AOD and behavioral health. Patient reports that he may need to continue his medical stabilization post discharge, therefore his records have been sent to [facility] for a Sunday admission per patient request. At this time, the referral has been made to [facility] where they are holding a bed for him until further notice. [facility] is anticipating his arrival for 1pm on 06/17/2018. [facility] - admissions [phone] / [facility] admissions [phone]
[2018-06-14 16:12] LABS: Vitamin B12 267 pg/mL (211-911)
[2018-06-14 16:32] LABS: HIV - WCH Non-Reactive (Nonreactive)
--- NOTE | 2018-06-14 16:45 | RAD_ITS ---
STUDY: X-RAY - LEFT HAND REASON FOR EXAM: Male, 28 years old. Pain TECHNIQUE: 3 view(s) of the hand. COMPARISON: None. FINDINGS: Normal radiocarpal articulation. Normal distal radioulnar joint. Normal visualized carpal bones. Normal carpal articulations Normal carpometacarpal articulation of the thumb. Normal second through fifth carpometacarpal joints. Normal metacarpi. Normal metacarpophalangeal joint of the thumb. Normal interphalangeal joint of the thumb. Normal proximal and distal phalanges of the thumb. Normal metacarpophalangeal joints of the second through fifth fingers. Normal proximal and distal interphalangeal joints of the second through fifth fingers. Normal phalanges of the second through fifth fingers. The soft tissue structures are unremarkable. RAD/Hand Min 3 Views IMPRESSION: Normal x-ray examination of the hand. Electronically Signed: Steffany Green MD at 8:52 EDT Tel , Service support ,
[2018-06-14 17:30] VITALS: BP 158/81; PULSE 77; RESP 16; TEMP 36.8
[2018-06-14 22:00] VITALS: BP 142/85; PULSE 74; RESP 16; TEMP 36.6
[2018-06-15 02:00] VITALS: BP 147/69; PULSE 56; RESP 16; TEMP 36.6
[2018-06-15 02:44] LABS: Amphetamine Urine VISTA NEGATIVE (<1000 ng/mL); Barbiturate Urine VISTA NEGATIVE (< 200 ng/mL); Benzodiazepine Urine VISTA NEGATIVE (< 200 ng/mL); Cocaine Urine VISTA NEGATIVE (< 300 ng/mL); Ecstacy Urine VISTA NEGATIVE (< 500 ng/mL); Methadone Urine VISTA NEGATIVE (< 300 ng/mL); PCP Urine VISTA NEGATIVE (< 25 ng/mL); THC Urine VISTA POSITIVE (< 50 ng/mL); Vista UDS pH Range 7
[2018-06-15 05:58] VITALS: RESP 16
[2018-06-15] MEDS: chlordiazePOXIDE 25 MG Capsule PO ×2 (06:00→09:44)
[2018-06-15] MEDS: Buprenorphine HCl 2 MG TAB.SUBL SL ×3 (06:00→22:26)
--- NOTE | 2018-06-15 07:06 | PCM.PN.HOSP ---
Patient Problems: Active and Suspected Problems Opiate withdrawal (Acute) Subjective: Patient with no acute events overnight per self and per nursing report. He did decline some sedated regimen secondary to being very sluggish but otherwise noted that withdrawal symptoms were markedly improved since initial presentation. This morning he notes being very tired but otherwise no acute complaints. Did review plain film of his hand which was unremarkable. Patient denies fevers, chills, nausea, emesis, abdominal pain, chest pain or dyspnea. Objective: Physical Examination: General: awake, alert, oriented x 3 and cooperative, in the bed, awoken but very fatigued and wanting to go back to sleep, denies any market withdrawal symptoms currently. Skin: normal color, turgor, no icterus, cyanosis, several tattoos, bilateral antecubital fossa with track stokes, non-infected appearing. HEENT: AT/NC, EOMI, PERRLA, improved MMM. Lungs: Diminished breath sounds bilateral bases, moderate effort, no rales, rhonchi or wheezing noted. Heart: Regular rate and regular rhythm; no gallop, rub audible. Abdomen: soft, NTTP, ND, normalized BS. Extremities: no cyanosis, clubbing, or edema, see skin. Neurological: patient awake, alert, oriented x 3; cognitive function intact; pupils equally reactive to light and accomodation; cranial nerves II-XII grossly normal, moving all 4 extremities, no focal deficits, strength improved, mildly to moderately globally decreased. Psychiatric: affect appears fatigued, no acute evidence of depressive feelings. Vitals/I&O's: Vital Signs Temp Pulse Resp BP Pulse Ox 97.9 F 56 L 16 147/69 H 97 06/15/18 02:00 06/15/18 02:00 06/15/18 05:58 06/15/18 02:00 06/14/18 13:59 Oxygen Delivery Method Room Air Weight: 156 lb 15.506 oz Body Mass Index (BMI) 19.6 Intake and Output for Last 24 Hours 06/13/18 06/14/18 06/15/18 23:59 23:59 23:59 Intake Total 1130 / 1130 1820 / 1820 Output Total 400 / 400 Balance 1130 / 1130 1420 / 1420 Laboratory Results 06/14/18 14:40: WBC 8.4, RBC 3.81 L, Hgb 10.9 L, Hct 35.1 L, MCV 92.1, MCH 28.6, MCHC 31.1 L, RDW 15.4 H, RDW Differential 51.8 H, Plt Count 280, MPV 9.8, Immature Gran % (Auto) 0.100, Neut % (Auto) 73.3 H, Lymph % (Auto) 17.9 L, Scurry % (Auto) 4.4, Eos % (Auto) 3.2, Baso % (Auto) 1.1 H, Absolute Neuts (auto) 6.2, Absolute Lymphs (auto) 1.51, Total Counted Not Reportable 06/14/18 14:40: PT 13.7, INR 1.1 06/14/18 14:40: Sodium 140, Potassium 4.0, Chloride 111 H, Carbon Dioxide 26.0, Anion Gap 3 L, BUN 14, Creatinine 0.80, Estim Creat Clear Calc 139.68, Est GFR (MDRD) Af Amer 150, Est GFR (MDRD) Non-Af 124, BUN/Creatinine Ratio 17.6, Glucose 117 H, Calcium 8.3 L, Total Bilirubin 0.20, AST 22, ALT 30, Alkaline Phosphatase 62, Total Protein 6.4, Albumin 3.2, Globulin 3.2, Albumin/Globulin Ratio 1.0, Lipase 114 06/14/18 14:40: Ethyl Alcohol < 3.0 06/14/18 14:40: Hepatitis A IgM Ab Pending, Hepatitis A Ab Total Pending, Hep Bs Antigen Pending, Hep B Core Total Ab Pending, Hep B Core IgM Ab Pending 06/14/18 14:40: HIV 1&2 Antibody Non-Reactive 06/14/18 14:40: Vitamin B12 267 06/14/18 14:40: Iron 50 L, TIBC 256, Iron Saturation 19.5, Ferritin 53, Folate 8.30 06/15/18 02:20: Urine Opiates Screen NEGATIVE, Urine Methadone Screen NEGATIVE, Ur Barbiturates Screen NEGATIVE, Ur Phencyclidine Scrn NEGATIVE, Ur Amphetamines Screen NEGATIVE, U Methamphetamin-MDMA NEGATIVE, U Benzodiazepines Scrn NEGATIVE, Urine Cocaine Screen NEGATIVE, U Cannabinoids Screen POSITIVE H, Ur Drug Screen Comment Current Medications Acetaminophen (Tylenol) 500 mg PO Q4H PRN PRN PRN Reason: Temp > 100.4 F Al Hydroxide/Mg Hydroxide (Mylanta Ii) 30 ml PO Q6H PRN PRN PRN Reason: dyspesia Bisacodyl (Dulcolax) 10 mg RECTAL DAILY PRN PRN Reason: Constipation Buprenorphine HCl (Buprenorphine Hcl) 4 mg SL Q8H [facility]; Taper Stop: 06/17/18 18:14 Last Admin: 06/15/18 06:00 Dose: 4 mg Chlordiazepoxide (Librium) 25 mg PO Q6H PRN PRN PRN Reason: Moderate-Severe Anxiety Chlordiazepoxide (Librium) 25 mg PO Q4H [facility] Stop: 06/15/18 10:01 Last Admin: 06/15/18 06:00 Dose: 25 mg Clonidine (Catapres) 0.1 mg PO Q2H PRN PRN PRN Reason: Hot/Cold Sweats or Anxiety Dicyclomine HCl (Bentyl) 20 mg PO Q6H PRN PRN PRN Reason: Abdomnial Discomfort Hydroxyzine HCl (Vistaril Vial) 50 mg IM Q6H PRN PRN PRN Reason: Breakthrough Anxiety Hydroxyzine Pamoate (Vistaril Pamoate Capsule) 50 mg PO Q6H PRN PRN PRN Reason: Mild Anxiety Sodium Chloride () 250 mls @ 15 mls/hr IV .[id number] PRN PRN Reason: SALINE FLUSH Ibuprofen (Motrin) 600 mg PO Q8H PRN PRN PRN Reason: Mild-Moderate Pain (1-5/10) Loperamide HCl (Imodium) 2 - 4 mg PO UD PRN PRN Reason: LOOSE STOOLS Methocarbamol (Methocarbamol) 750 mg PO Q6H PRN PRN PRN Reason: Muscle Aches Last Admin: 06/14/18 14:22 Dose: 750 mg Nicotine (Nicoderm Cq (Pbkc)) 21 mg TRANSDERM. DAILY [facility] Nutritional Formula (Lactose Free) (Ensure Enlive) 120 ml PO 4X/DAY [facility] Last Admin: 06/14/18 21:28 Dose: 120 ml Ondansetron HCl (Zofran Odt) 4 mg PO Q6H PRN PRN PRN Reason: NAUSEA Pramipexole Dihydrochloride (Mirapex) 0.25 mg PO Q12H PRN PRN PRN Reason: Restless Legs Senna (Senokot) 1 tablet PO QHS PRN PRN Reason: Constipation Sodium Chloride () 5 - 15 ml IV UD PRN PRN Reason: SALINE FLUSH Trazodone HCl (Desyrel) 50 mg PO QHS [facility] Last Admin: 06/14/18 21:35 Dose: Not Given Medical Necessity - Tobacco Use Smoking Status: Current every day smoker - 1 pack/day cigarette tobacco usage ongoing. Tobacco Use: Cigarettes Assessment/Plan All Active Problems Opiate withdrawal (Acute) The patient is a 28 y/o M w/ PMHx: Hepatitis C, Tobacco use, Prior Seizures with BZD withdrawal, Anemia Unclear Type, Polysubstance abuse who presents to the [facility] at [facility] on 06/14/18 w/ noted opiate withdrawal onset. (1) Acute Opiate Withdrawal: Admitted to [place], routine labs obtained including CBC w/ Hgb 10.9, CMP not marked, urine for drug screen w/ cannabis only, routine EKG given cocaine use, initiated and continued on [facility] service protocol with tapering course of Subutex, as needed Seroquel, Librium, Sinemet, Catapres, Bentyl, Vistaril, IV fluids, IV antiemetics, Tylenol as needed for pain. Once patient clinically improved and completion of taper nearing will plan [facility] assistance for transition to next level of rehabilitation care. Given notable history of usage, confirmed per patient that he has not been using BZD as we discussed this is a withdrawal protocol that must be set-up with an outpatient physician to assure appropriate taper regimen. (2) Polysubstance Abuse, IVDA Hx, History of Hepatitis C, Chronic: Patient currently not candidate for hep C treatment currently as needs to be clean, sober x 6 months, documented attendance NA or AA meetings, counseling and ongoing negative drug screens. Once appropriate GI, ID to initiate. HIV negative, hepatitis panel pending to assess for co-infection pending. Encouraged PCP establishment and follow-up. (3) Tobacco Abuse: Encouraged cessation, inpatient consultation per RT, NR if desired. (4) Anemia, Normocytic: Admission Hgb 10.9, normal MCV, iron panel w/ Iron 50, TIBC 256, Fe saturation 19.5, Ferritin 53 appears as a mixed picture, folic acid 8.30 (low normal), vitamin B12 267 (low normal). Will start supplementation. (5) L hand Pain: Possible trauma, unclear, frequent IVDA as noted, plain film L hand unremarkable. (6) DVT Prophylaxis: Low risk, ambulation. Code Visit Inpatient E&M: 97156 Subs Hosp L2
--- NOTE | 2018-06-15 07:12 | PN_ITS ---
Patient Problems: Active and Suspected Problems Opiate withdrawal (Acute) Subjective: Patient with no acute events overnight per self and per nursing report. He did decline some sedated regimen secondary to being very sluggish but otherwise noted that withdrawal symptoms were markedly improved since initial presentation. This morning he notes being very tired but otherwise no acute complaints. Did review plain film of his hand which was unremarkable. Patient denies fevers, chills, nausea, emesis, abdominal pain, chest pain or dyspnea. Objective: Physical Examination: General: awake, alert, oriented x 3 and cooperative, in the bed, awoken but very fatigued and wanting to go back to sleep, denies any market withdrawal symptoms currently. Skin: normal color, turgor, no icterus, cyanosis, several tattoos, bilateral antecubital fossa with track stokes, non-infected appearing. HEENT: AT/NC, EOMI, PERRLA, improved MMM. Lungs: Diminished breath sounds bilateral bases, moderate effort, no rales, rhonchi or wheezing noted. Heart: Regular rate and regular rhythm; no gallop, rub audible. Abdomen: soft, NTTP, ND, normalized BS. Extremities: no cyanosis, clubbing, or edema, see skin. Neurological: patient awake, alert, oriented x 3; cognitive function intact; pupils equally reactive to light and accomodation; cranial nerves II-XII grossly normal, moving all 4 extremities, no focal deficits, strength improved, mildly to moderately globally decreased. Psychiatric: affect appears fatigued, no acute evidence of depressive feelings. Vitals/I&O's: Vital Signs Temp Pulse Resp BP Pulse Ox 97.9 F 56 L 16 147/69 H 97 06/15/18 02:00 06/15/18 02:00 06/15/18 05:58 06/15/18 02:00 06/14/18 13:59 Oxygen Delivery Method Room Air Weight: 156 lb 15.506 oz Body Mass Index (BMI) 19.6 Intake and Output for Last 24 Hours 06/13/18 06/14/18 06/15/18 23:59 23:59 23:59 Intake Total 1130 / 1130 1820 / 1820 Output Total 400 / 400 Balance 1130 / 1130 1420 / 1420 Laboratory Results 06/14/18 14:40: WBC 8.4, RBC 3.81 L, Hgb 10.9 L, Hct 35.1 L, MCV 92.1, MCH 28.6, MCHC 31.1 L, RDW 15.4 H, RDW Differential 51.8 H, Plt Count 280, MPV 9.8, Immature Gran % (Auto) 0.100, Neut % (Auto) 73.3 H, Lymph % (Auto) 17.9 L, Schleicher % (Auto) 4.4, Eos % (Auto) 3.2, Baso % (Auto) 1.1 H, Absolute Neuts (auto) 6.2, Absolute Lymphs (auto) 1.51, Total Counted Not Reportable 06/14/18 14:40: PT 13.7, INR 1.1 06/14/18 14:40: Sodium 140, Potassium 4.0, Chloride 111 H, Carbon Dioxide 26.0, Anion Gap 3 L, BUN 14, Creatinine 0.80, Estim Creat Clear Calc 139.68, Est GFR (MDRD) Af Amer 150, Est GFR (MDRD) Non-Af 124, BUN/Creatinine Ratio 17.6, Glucose 117 H, Calcium 8.3 L, Total Bilirubin 0.20, AST 22, ALT 30, Alkaline Phosphatase 62, Total Protein 6.4, Albumin 3.2, Globulin 3.2, Albumin/Globulin Ratio 1.0, Lipase 114 06/14/18 14:40: Ethyl Alcohol < 3.0 06/14/18 14:40: Hepatitis A IgM Ab Pending, Hepatitis A Ab Total Pending, Hep Bs Antigen Pending, Hep B Core Total Ab Pending, Hep B Core IgM Ab Pending 06/14/18 14:40: HIV 1&2 Antibody Non-Reactive 06/14/18 14:40: Vitamin B12 267 06/14/18 14:40: Iron 50 L, TIBC 256, Iron Saturation 19.5, Ferritin 53, Folate 8.30 06/15/18 02:20: Urine Opiates Screen NEGATIVE, Urine Methadone Screen NEGATIVE, Ur Barbiturates Screen NEGATIVE, Ur Phencyclidine Scrn NEGATIVE, Ur Amphetamines Screen NEGATIVE, U Methamphetamin-MDMA NEGATIVE, U Benzodiazepines Scrn NEGATIVE, Urine Cocaine Screen NEGATIVE, U Cannabinoids Screen POSITIVE H, Ur Drug Screen Comment Current Medications Acetaminophen (Tylenol) 500 mg PO Q4H PRN PRN PRN Reason: Temp > 100.4 F Al Hydroxide/Mg Hydroxide (Mylanta Ii) 30 ml PO Q6H PRN PRN PRN Reason: dyspesia Bisacodyl (Dulcolax) 10 mg RECTAL DAILY PRN PRN Reason: Constipation Buprenorphine HCl (Buprenorphine Hcl) 4 mg SL Q8H [facility]; Taper Stop: 06/17/18 18:14 Last Admin: 06/15/18 06:00 Dose: 4 mg Chlordiazepoxide (Librium) 25 mg PO Q6H PRN PRN PRN Reason: Moderate-Severe Anxiety Chlordiazepoxide (Librium) 25 mg PO Q4H [facility] Stop: 06/15/18 10:01 Last Admin: 06/15/18 06:00 Dose: 25 mg Clonidine (Catapres) 0.1 mg PO Q2H PRN PRN PRN Reason: Hot/Cold Sweats or Anxiety Dicyclomine HCl (Bentyl) 20 mg PO Q6H PRN PRN PRN Reason: Abdomnial Discomfort Hydroxyzine HCl (Vistaril Vial) 50 mg IM Q6H PRN PRN PRN Reason: Breakthrough Anxiety Hydroxyzine Pamoate (Vistaril Pamoate Capsule) 50 mg PO Q6H PRN PRN PRN Reason: Mild Anxiety Sodium Chloride () 250 mls @ 15 mls/hr IV .[id number] PRN PRN Reason: SALINE FLUSH Ibuprofen (Motrin) 600 mg PO Q8H PRN PRN PRN Reason: Mild-Moderate Pain (1-5/10) Loperamide HCl (Imodium) 2 - 4 mg PO UD PRN PRN Reason: LOOSE STOOLS Methocarbamol (Methocarbamol) 750 mg PO Q6H PRN PRN PRN Reason: Muscle Aches Last Admin: 06/14/18 14:22 Dose: 750 mg Nicotine (Nicoderm Cq (Pbkc)) 21 mg TRANSDERM. DAILY [facility] Nutritional Formula (Lactose Free) (Ensure Enlive) 120 ml PO 4X/DAY [facility] Last Admin: 06/14/18 21:28 Dose: 120 ml Ondansetron HCl (Zofran Odt) 4 mg PO Q6H PRN PRN PRN Reason: NAUSEA Pramipexole Dihydrochloride (Mirapex) 0.25 mg PO Q12H PRN PRN PRN Reason: Restless Legs Senna (Senokot) 1 tablet PO QHS PRN PRN Reason: Constipation Sodium Chloride () 5 - 15 ml IV UD PRN PRN Reason: SALINE FLUSH Trazodone HCl (Desyrel) 50 mg PO QHS [facility] Last Admin: 06/14/18 21:35 Dose: Not Given Medical Necessity - Tobacco Use Smoking Status: Current every day smoker - 1 pack/day cigarette tobacco usage ongoing. Tobacco Use: Cigarettes Assessment/Plan All Active Problems Opiate withdrawal (Acute) The patient is a 28 y/o M w/ PMHx: Hepatitis C, Tobacco use, Prior Seizures with BZD withdrawal, Anemia Unclear Type, Polysubstance abuse who presents to the [facility] at [facility] on 06/14/18 w/ noted opiate withdrawal onset. (1) Acute Opiate Withdrawal: Admitted to [place], routine labs obtained including CBC w/ Hgb 10.9, CMP not marked, urine for drug screen w/ cannabis only, routine EKG given cocaine use, initiated and continued on [facility] service protocol with tapering course of Subutex, as needed Seroquel, Librium, Sinemet, Catapres, Bentyl, Vistaril, IV fluids, IV antiemetics, Tylenol as needed for pain. Once patient clinically improved and completion of taper nearing will plan [facility] assistance for transition to next level of rehabilitation care. Given notable history of usage, confirmed per patient that he has not been using BZD as we discussed this is a withdrawal protocol that must be set-up with an outpatient physician to assure appropriate taper regimen. (2) Polysubstance Abuse, IVDA Hx, History of Hepatitis C, Chronic: Patient currently not candidate for hep C treatment currently as needs to be clean, sober x 6 months, documented attendance NA or AA meetings, counseling and ongoing negative drug screens. Once appropriate GI, ID to initiate. HIV negative, hepatitis panel pending to assess for co-infection pending. Encouraged PCP establishment and follow-up. (3) Tobacco Abuse: Encouraged cessation, inpatient consultation per RT, NR if desired. (4) Anemia, Normocytic: Admission Hgb 10.9, normal MCV, iron panel w/ Iron 50, TIBC 256, Fe saturation 19.5, Ferritin 53 appears as a mixed picture, folic acid 8.30 (low normal), vitamin B12 267 (low normal). Will start supplementation. (5) L hand Pain: Possible trauma, unclear, frequent IVDA as noted, plain film L hand unremarkable. (6) DVT Prophylaxis: Low risk, ambulation. Code Visit Inpatient E&M: 78583 Subs Hosp L2
[2018-06-15 09:45] VITALS: O2SAT 98
[2018-06-15] MEDS: Cyanocobalamin 500 MCG Tablet PO (09:45)
[2018-06-15] MEDS: Ferrous Gluconate 324 MG Tablet PO ×2 (09:45→22:25)
[2018-06-15] MEDS: Folic Acid 1 MG Tablet PO (09:45)
[2018-06-15 10:00] VITALS: BP 107/68; PULSE 74; RESP 16; TEMP 36.8
[2018-06-15 14:00] VITALS: BP 130/77; PULSE 68; RESP 14; TEMP 36.9
[2018-06-15 22:18] VITALS: BP 127/83; PULSE 59; RESP 16; TEMP 36.6
[2018-06-15] MEDS: hydrOXYzine PAM 25 MG Capsule 50 MG PO (22:25)
[2018-06-15] MEDS: Ibuprofen 600 MG Tablet PO (22:25)
[2018-06-15] MEDS: Methocarbamol 750 MG Tablet PO (22:25)
[2018-06-15] MEDS: Pramipexole Di-HCl 0.25 MG Tablet PO (22:25)
[2018-06-16 06:48] VITALS: BP 135/73; PULSE 67; RESP 16; TEMP 37.1
[2018-06-16] MEDS: Buprenorphine HCl 2 MG TAB.SUBL SL (06:49)
--- NOTE | 2018-06-16 07:03 | PN_ITS ---
Patient Problems: Active and Suspected Problems Opiate withdrawal (Acute) Subjective: The patient is a 28 y/o M w/ PMHx: Hepatitis C, Tobacco use, Prior Seizures with BZD withdrawal, Anemia Unclear Type, Polysubstance abuse who presents to the [facility] at [facility] on 06/14/18 w/ noted opiate withdrawal onset. Admitted to [place], initiated and continued on [facility] service protocol with tapering course of Subutex, PRN agents, confirmed per patient that he has not been using BZD as we discussed this is a withdrawal protocol that must be set-up with an outpatient physician to assure appropriate taper regimen and UDS w/ cannabis only. Given timeline of substance abuse expected more agents in his urine of note. HIV negative, hepatitis panel pending to assess for co-infection pending. Admission Hgb 10.9, normal MCV, iron panel w/ Iron 50, TIBC 256, Fe saturation 19.5, Ferritin 53 appears as a mixed picture, folic acid 8.30 (low normal), vitamin B12 267 (low normal). Started supplementation. Patient with no acute events overnight per self and per nursing report. Patient notes withdrawal symptoms have markedly improved. Patient remains amenable to continuing withdrawal protocol treatments and transitioning to an outpatient facility for ongoing treatment. Left hand discomfort is improved. patient mario es fevers, chills, nausea, emesis, abdominal pain, chest pain or dyspnea. Objective: Physical Examination: General: awake, alert, oriented x 3 and cooperative, in the bed, and, no acute distress, notes symptoms have markedly improved. Skin: normal color, turgor, no icterus, cyanosis, several tattoos, bilateral antecubital fossa with track stokes, non-infected appearing. HEENT: AT/NC, EOMI, PERRLA, improved MMM. Lungs: Diminished breath sounds bilateral bases, moderate effort, no rales, rhonchi or wheezing noted. Heart: Regular rate and regular rhythm; no gallop, rub audible. Abdomen: soft, NTTP, ND, normalized BS. Extremities: no cyanosis, clubbing, or edema, see skin. Neurological: patient awake, alert, oriented x 3; cognitive function intact; pupils equally reactive to light and accomodation; cranial nerves II-XII grossly normal, moving all 4 extremities, no focal deficits, strength improved, mildly globally decreased. Psychiatric: affect appears improved, eating breakfast, no acute evidence of depressive feelings. Vitals/I&O's: Vital Signs Temp Pulse Resp BP Pulse Ox 98.7 F 67 16 135/73 H 98 06/16/18 06:48 06/16/18 06:48 06/16/18 06:48 06/16/18 06:48 06/15/18 09:45 Oxygen Delivery Method Room Air Weight: 156 lb 15.506 oz Body Mass Index (BMI) 19.6 Intake and Output for Last 24 Hours 06/14/18 06/15/18 06/16/18 23:59 23:59 23:59 Intake Total 1130 / 1130 2220 / 2220 524 / 524 Output Total 400 / 400 Balance 1130 / 1130 1820 / 1820 524 / 524 Current Medications Acetaminophen (Tylenol) 500 mg PO Q4H PRN PRN PRN Reason: Temp > 100.4 F Al Hydroxide/Mg Hydroxide (Mylanta Ii) 30 ml PO Q6H PRN PRN PRN Reason: dyspesia Bisacodyl (Dulcolax) 10 mg RECTAL DAILY PRN PRN Reason: Constipation Buprenorphine HCl (Buprenorphine Hcl) 2 mg SL Q12H [facility]; Taper Stop: 06/17/18 18:14 Last Admin: 06/16/18 06:49 Dose: 2 mg Chlordiazepoxide (Librium) 25 mg PO Q6H PRN PRN PRN Reason: Moderate-Severe Anxiety Clonidine (Catapres) 0.1 mg PO Q2H PRN PRN PRN Reason: Hot/Cold Sweats or Anxiety Cyanocobalamin (Vitamin B12) 500 mcg PO DAILY@0800 [facility] Last Admin: 06/15/18 09:45 Dose: 500 mcg Dicyclomine HCl (Bentyl) 20 mg PO Q6H PRN PRN PRN Reason: Abdomnial Discomfort Ferrous Gluconate (Ferrous Gluconate) 324 mg PO BIDCM [facility] Last Admin: 06/15/18 22:25 Dose: 324 mg Folic Acid (Folic Acid) 1 mg PO DAILY@0800 [facility] Last Admin: 06/15/18 09:45 Dose: 1 mg Hydroxyzine HCl (Vistaril Vial) 50 mg IM Q6H PRN PRN PRN Reason: Breakthrough Anxiety Hydroxyzine Pamoate (Vistaril Pamoate Capsule) 50 mg PO Q6H PRN PRN PRN Reason: Mild Anxiety Last Admin: 06/15/18 22:25 Dose: 50 mg Sodium Chloride () 250 mls @ 15 mls/hr IV .[id number] PRN PRN Reason: SALINE FLUSH Ibuprofen (Motrin) 600 mg PO Q8H PRN PRN PRN Reason: Mild-Moderate Pain (1-5/10) Last Admin: 06/15/18 22:25 Dose: 600 mg Loperamide HCl (Imodium) 2 - 4 mg PO UD PRN PRN Reason: LOOSE STOOLS Methocarbamol (Methocarbamol) 750 mg PO Q6H PRN PRN PRN Reason: Muscle Aches Last Admin: 06/15/18 22:25 Dose: 750 mg Nicotine (Nicoderm Cq (Pbkc)) 21 mg TRANSDERM. DAILY [facility] Last Admin: 06/15/18 09:45 Dose: 21 mg Nutritional Formula (Lactose Free) (Ensure Enlive) 120 ml PO 4X/DAY [facility] Last Admin: 06/15/18 22:21 Dose: Not Given Ondansetron HCl (Zofran Odt) 4 mg PO Q6H PRN PRN PRN Reason: NAUSEA Pramipexole Dihydrochloride (Mirapex) 0.25 mg PO Q12H PRN PRN PRN Reason: Restless Legs Last Admin: 06/15/18 22:25 Dose: 0.25 mg Senna (Senokot) 1 tablet PO QHS PRN PRN Reason: Constipation Sodium Chloride () 5 - 15 ml IV UD PRN PRN Reason: SALINE FLUSH Trazodone HCl (Desyrel) 50 mg PO QHS [facility] Last Admin: 06/15/18 22:26 Dose: Not Given Medical Necessity - Tobacco Use Smoking Status: Current every day smoker - 1 pack/day cigarette tobacco usage ongoing. Tobacco Use: Cigarettes Assessment/Plan All Active Problems Opiate withdrawal (Acute) The patient is a 28 y/o M w/ PMHx: Hepatitis C, Tobacco use, Prior Seizures with BZD withdrawal, Anemia Unclear Type, Polysubstance abuse who presents to the [facility] at [facility] on 06/14/18 w/ noted opiate withdrawal onset. (1) Acute Opiate Withdrawal: Admitted to [place], routine labs obtained including CBC w/ Hgb 10.9, CMP not marked, urine for drug screen w/ cannabis only, routine EKG given cocaine use, initiated and continued on [facility] service protocol with tapering course of Subutex, as needed Seroquel, Librium, Sinemet, Catapres, Bentyl, Vistaril, IV fluids, IV antiemetics, Tylenol as needed for pain. Once patient clinically improved and completion of taper nearing will plan [facility] assistance for transition to next level of rehabilitation care. Given notable history of usage, confirmed per patient that he has not been using BZD as we discussed this is a withdrawal protocol that must be set-up with an outpatient physician to assure appropriate taper regimen and UDS w/ cannabis only. Given timeline of substance abuse expected more agents in his urine of note. (2) Polysubstance Abuse, IVDA Hx, History of Hepatitis C, Chronic: Patient currently not candidate for hep C treatment currently as needs to be clean, sober x 6 months, documented attendance NA or AA meetings, counseling and ongoing negative drug screens. Once appropriate GI, ID to initiate. HIV negative, hepatitis panel pending to assess for co-infection pending. Encouraged PCP establishment and follow-up. (3) Tobacco Abuse: Encouraged cessation, inpatient consultation per RT, NR if desired. (4) Anemia, Normocytic: Admission Hgb 10.9, normal MCV, iron panel w/ Iron 50, TIBC 256, Fe saturation 19.5, Ferritin 53 appears as a mixed picture, folic acid 8.30 (low normal), vitamin B12 267 (low normal). Started supplementation. (5) L hand Pain: Possible trauma, unclear, frequent IVDA as noted, plain film L hand unremarkable. (6) DVT Prophylaxis: Low risk, ambulation. Code Visit Inpatient E&M: 87027 Subs Hosp L2
[2018-06-16 07:58] VITALS: BP 129/80; PULSE 74; RESP 16; TEMP 36.6; O2SAT 100
--- NOTE | 2018-06-16 13:31 | NURSING ---
pt left [facility]. attempt to have [facility] pick hip up but [facility] stated that it today. pt walked out. dr tabares notified.
--- NOTE | 2018-06-16 15:02 | PCM.DC.SUM ---
Discharge Date and Diagnosis Date of Admission: 06/14/18 Date of Discharge: 06/16/18 - Primary Discharge Diagnosis (1) Acute Opiate Withdrawal (2) Polysubstance Abuse, IVDA Hx, History of Hepatitis C, Chronic (3) Tobacco Abuse (4) Anemia, Normocytic, appeared multifactorial including Fe, Vitamin B12, Folic Acid (5) L hand Pain, secondary to suspected injury with no evidence of fracture - Secondary Discharge Diagnosis Chronic Problems Polysubstance abuse (Chronic) Heroin abuse (Chronic) Cocaine abuse (Chronic) Methamphetamine abuse (Chronic) Inhalant abuse (Chronic) Tobacco use (Chronic) Hepatitis C (Chronic) History of benzodiazepine use (Chronic) Hospital Course and Treatment Operations: None Procedures: EKG Summary of Care Provided: The patient is a 28 y/o M w/ PMHx: Hepatitis C, Tobacco use, Prior Seizures with BZD withdrawal, Anemia Unclear Type, Polysubstance abuse who presented to the [facility] at [facility] on 06/14/18 w/ noted opiate withdrawal onset. Admitted to [place], routine labs obtained including CBC w/ Hgb 10.9, CMP not marked, urine for drug screen w/ cannabis only, routine EKG given cocaine use, initiated and continued on [facility] service protocol with tapering course of Subutex, as needed Seroquel, Librium, Sinemet, Catapres, Bentyl, Vistaril, IV fluids, IV antiemetics, Tylenol as needed for pain. Given notable history of usage, confirmed per patient that he had not been using BZD as we discussed this is a withdrawal protocol that must be set-up with an outpatient physician to assure appropriate taper regimen and UDS w/ cannabis only. Given timeline of substance abuse expected more agents in his urine of note. HIV negative, hepatitis panel pending to assess for co-infection pending upon patient leaving AMA. Admission Hgb 10.9, normal MCV, iron panel w/ Iron 50, TIBC 256, Fe saturation 19.5, Ferritin 53 appears as a mixed picture, folic acid 8.30 (low normal), vitamin B12 267 (low normal). Started supplementation. Patient w/ L hand pain complaint upon presentation, felt possible trauma, unclear, plain film L hand unremarkable. Despite encouragement to remain, patient left AMA on 06/16/18. - Physical Exam Vital Signs Temp Pulse Resp BP Pulse Ox 97.9 F 74 16 129/80 H 100 06/16/18 07:58 06/16/18 07:58 06/16/18 07:58 06/16/18 07:58 06/16/18 07:58 Oxygen Delivery Method Room Air Weight: 156 lb 15.506 oz Body Mass Index (BMI) 19.6 Intake and Output for Last 24 Hours 06/14/18 06/15/18 06/16/18 23:59 23:59 23:59 Intake Total 1130 / 1130 2220 / 2220 524 / 524 Output Total 400 / 400 Balance 1130 / 1130 1820 / 1820 524 / 524 Home Medications: Medications to take at Discharge NK 06/14/18 Disposition: Against Medical Advice Minutes spent on discharge:: 35 Patient Condition:: Stable Medical Necessity - Tobacco Use Smoking Status: Current every day smoker - 1 pack/day cigarette tobacco usage ongoing. Tobacco Use: Cigarettes Meaningful Use Info Meaningful Use Diagnoses (Choose all that apply): None applicable Code Visit Inpatient E&M: 85335 Disch Hosp
--- NOTE | 2018-06-16 15:06 | DS.PCM_ITS ---
Discharge Date and Diagnosis Date of Admission: 06/14/18 Date of Discharge: 06/16/18 - Primary Discharge Diagnosis (1) Acute Opiate Withdrawal (2) Polysubstance Abuse, IVDA Hx, History of Hepatitis C, Chronic (3) Tobacco Abuse (4) Anemia, Normocytic, appeared multifactorial including Fe, Vitamin B12, Folic Acid (5) L hand Pain, secondary to suspected injury with no evidence of fracture - Secondary Discharge Diagnosis Chronic Problems Polysubstance abuse (Chronic) Heroin abuse (Chronic) Cocaine abuse (Chronic) Methamphetamine abuse (Chronic) Inhalant abuse (Chronic) Tobacco use (Chronic) Hepatitis C (Chronic) History of benzodiazepine use (Chronic) Hospital Course and Treatment Operations: None Procedures: EKG Summary of Care Provided: The patient is a 28 y/o M w/ PMHx: Hepatitis C, Tobacco use, Prior Seizures with BZD withdrawal, Anemia Unclear Type, Polysubstance abuse who presented to the [facility] at [facility] on 06/14/18 w/ noted opiate withdrawal onset. Admitted to [facility], routine labs obtained including CBC w/ Hgb 10.9, CMP not marked, urine for drug screen w/ cannabis only, routine EKG given cocaine use, initiated and continued on [facility] service protocol with tapering course of Subutex, as needed Seroquel, Librium, Sinemet, Catapres, Bentyl, Vistaril, IV fluids, IV antiemetics, Tylenol as needed for pain. Given notable history of usage, confirmed per patient that he had not been using BZD as we discussed this is a withdrawal protocol that must be set-up with an outpatient physician to assure appropriate taper regimen and UDS w/ cannabis only. Given timeline of substance abuse expected more agents in his urine of note. HIV negative, hepatitis panel pending to assess for co-infection pending upon patient leaving AMA. Admission Hgb 10.9, normal MCV, iron panel w/ Iron 50, TIBC 256, Fe saturation 19.5, Ferritin 53 appears as a mixed picture, folic acid 8.30 (low normal), vitamin B12 267 (low normal). Started supplementation. Patient w/ L hand pain complaint upon presentation, felt possible trauma, unclear, plain film L hand unremarkable. Despite encouragement to remain, patient left AMA on 06/16/18. - Physical Exam Vital Signs Temp Pulse Resp BP Pulse Ox 97.9 F 74 16 129/80 H 100 06/16/18 07:58 06/16/18 07:58 06/16/18 07:58 06/16/18 07:58 06/16/18 07:58 Oxygen Delivery Method Room Air Weight: 156 lb 15.506 oz Body Mass Index (BMI) 19.6 Intake and Output for Last 24 Hours 06/14/18 06/15/18 06/16/18 23:59 23:59 23:59 Intake Total 1130 / 1130 2220 / 2220 524 / 524 Output Total 400 / 400 Balance 1130 / 1130 1820 / 1820 524 / 524 Home Medications: Medications to take at Discharge NK 06/14/18 Disposition: Against Medical Advice Minutes spent on discharge:: 35 Patient Condition:: Stable Medical Necessity - Tobacco Use Smoking Status: Current every day smoker - 1 pack/day cigarette tobacco usage ongoing. Tobacco Use: Cigarettes Meaningful Use Info Meaningful Use Diagnoses (Choose all that apply): None applicable Code Visit Inpatient E&M: 82070 Disch Hosp
[2018-06-16 20:06] LABS: HEPATITIS B SURFACE AG Negative (Negative); Hepatitis A AB, Total Negative (Negative); Hepatitis A IgM Antibody Negative (Negative); Hepatitis B Core AB IgM Negative (Negative); Hepatitis B Core Ab Total Negative (Negative)
[2018-06-17 11:56] LABS: Hep B Surface Antibodies Reactive (.)
[2018-06-17 11:58] LABS: Hepatitis C Ab >11.0 s/co ratio (0.0-0.9)
== END 2018-06-16 13:24 | disposition left against medical advice (07) | DRG 770 ==
PROVIDERS: Admitting Provider Family Medicine; Referring Provider Family Medicine; Visit Provider Family Medicine
DX: F11.23 Opioid dependence with withdrawal (principal); F17.210 Nicotine dependence, cigarettes, uncomplicated; B18.2 Chronic viral hepatitis C; D64.9 Anemia, unspecified; S69.92XA Unspecified injury of left wrist, hand and finger(s), initial encounter; X58.XXXA Exposure to other specified factors, initial encounter; F19.10 Other psychoactive substance abuse, uncomplicated
CPT/HCPCS: 73130; 80053; 80307; 80320; 82607; 82728; 82746; 83540; 83550; 83690; 85025; 85610; 86703; 86704; 86705; 86706; 86708; 86709; 86803; 87340; 93005; 99406; J7120; G0480

== ENCOUNTER 2019-12-20 21:03 | Inpatient (IN) | payer MEDICAID, SELFPAY ==
[2018-06-14 13:46] VITALS: BMI 19.6
[2019-12-20 21:04] VITALS: BP 146/87; PULSE 60; RESP 14; TEMP 36.7; O2SAT 100; BMI 20.9
--- NOTE | 2019-12-20 21:16 | ED.VIS.GEN ---
History of Present Illness Chief Complaint: Substance Abuse Informant: Patient Narrative: 29-year-old male presents today for detox from methamphetamine, Xanax, fentanyl. He states he uses about a half a gram daily IV of methamphetamine, Xanax 3 to 4 mg every other day, fentanyl 4 to 5 g daily IV. He states he has been doing this and off for the past couple of years. He states that he did try to detox here previously admitted to day [facility] and he thought he was done but started using again. He states that his only medical problem is elevated liver enzymes from time to time but he also states nobody has figured out why. He denies any surgery. He denies any other medical problems. Patient states that he currently wants to detox because he found a friend the other day. He feels like he is finished with drugs. - Past Medical History (1) Hepatitis C Status: Chronic (2) History of benzodiazepine use Status: Chronic (3) Methamphetamine abuse Status: Chronic (4) Polysubstance abuse Status: Chronic Past Medical History - Allergies and Home Meds Allergies/Adverse Reactions: Allergies bee venom protein (honey bee) Allergy (Unknown, Verified 12/20/19 21:05) Anaphylaxis Prior records reviewed: Yes Past Medical History: - - Reviewed in problem list Surgical History: no surgical history, - - Patient notes prior jaw surgery, had wired shut as well. Lives: Alone Smoking Status: Current every day smoker - 1 pack/day cigarette tobacco usage ongoing. Drugs: - - Methamphetamine, Xanax, fentanyl - Family History Maternal Family History: Reports: - - Patient notes a maternal and paternal family history of substance abuse including heroin, meth and cocaine. His mother has currently been clean and sober for several years and lives with his grandmother. Paternal Family History: Reports: - - Patient notes a maternal and paternal family history of substance abuse including heroin, meth and cocaine. Patient notes that his father passed secondary to complications related with drug abuse. Review of Systems General: Denies: Chills, Fever, Sweats Eyes: Denies: Visual changes - bilaterally, Diplopia ENT: Denies: Rhinorrhea, Sore throat Cardiovascular: Denies: Chest pain, Palpitations Respiratory: Denies: Dyspnea, Cough, Dyspnea on exertion Gastrointestinal: Denies: Abdominal pain, Nausea, Vomiting, Diarrhea, Melena, Hematochezia Genitourinary: Denies: Dysuria, Hematuria, Frequency Musculoskeletal: Denies: Back pain, Extremity Pain Skin: Denies: Rash, Wounds Neurological: Denies: Headache, Weakness, Numbness Physical Exam Vital Signs/Narrative: Vital Signs Temp Pulse Resp BP Pulse Ox 12/20/19 21:04 98.0 F 60 14 146/87 H 100 General: Unkempt, No Acute Distress Head: Normocephalic, Atraumatic Eyes: Perrl, EOMI. Negative for: Scleral icterus ENT: Moist mucous membranes, No rhinorrhea Neck: Supple, Nontender Cardiovascular: Regular rate, Regular rhythm Respiratory: No distress, CTA bilaterally Extremities: Nontender, No edema Skin: Normal color, No rash Neurological: Alert, Oriented x3 Psychological: Normal affect, Normal Mood Diagnostic/Tx/Re-eval Laboratory Data 12/20/19 12/20/19 12/20/19 21:44 21:44 21:44 WBC 11.8 H RBC 4.75 Hgb 13.6 Hct 42.9 MCV 90.3 MCH 28.6 MCHC 31.7 L RDW Std Deviation 50.8 H RDW Coeff of Babar 15.2 H Plt Count 351 MPV 10.2 Immature Gran % (Auto) 0.500 Neut % (Auto) 68.2 Lymph % (Auto) 20.2 [place]ette % (Auto) 4.8 Eos % (Auto) 5.3 H Baso % (Auto) 1.0 Absolute Neuts (auto) 8.0 H Absolute Lymphs (auto) 2.38 Nucleated RBC % 0 Sodium 137 Potassium 4.1 Chloride 108 H Carbon Dioxide 22.0 Anion Gap 7 BUN 11 Creatinine 1.01 Estim Creat Clear Calc 113.97 Est GFR (MDRD) Af Amer 113 Est GFR (MDRD) Non-Af 93 BUN/Creatinine Ratio 10.9 Glucose 144 H Calcium 9.2 Total Bilirubin 0.40 AST 52 H ALT 151 H Alkaline Phosphatase 126 H Total Protein 8.4 H Albumin 3.6 Globulin 4.8 H Albumin/Globulin Ratio 0.8 L Urine Opiates Screen Urine Methadone Screen Ur Barbiturates Screen Ur Phencyclidine Scrn Ur Amphetamines Screen U Methamphetamin-MDMA U Benzodiazepines Scrn Urine Cocaine Screen U Cannabinoids Screen Ur Drug Screen Comment Ethyl Alcohol < 3.0 12/20/19 21:49 WBC RBC Hgb Hct MCV MCH MCHC RDW Std Deviation RDW Coeff of Babar Plt Count MPV Immature Gran % (Auto) Neut % (Auto) Lymph % (Auto) [place]ette % (Auto) Eos % (Auto) Baso % (Auto) Absolute Neuts (auto) Absolute Lymphs (auto) Nucleated RBC % Sodium Potassium Chloride Carbon Dioxide Anion Gap BUN Creatinine Estim Creat Clear Calc Est GFR (MDRD) Af Amer Est GFR (MDRD) Non-Af BUN/Creatinine Ratio Glucose Calcium Total Bilirubin AST ALT Alkaline Phosphatase Total Protein Albumin Globulin Albumin/Globulin Ratio Urine Opiates Screen NEGATIVE Urine Methadone Screen NEGATIVE Ur Barbiturates Screen NEGATIVE Ur Phencyclidine Scrn NEGATIVE Ur Amphetamines Screen POSITIVE H U Methamphetamin-MDMA NEGATIVE U Benzodiazepines Scrn NEGATIVE Urine Cocaine Screen POSITIVE H U Cannabinoids Screen POSITIVE H Ur Drug Screen Comment Ethyl Alcohol - Medical Decision Making Patient states that he is trying to detox from amphetamines, fentanyl, Xanax. His drug screen is positive for cocaine, marijuana and amphetamine. The patient has a slight bump in his LFTs but he states this is a chronic issue. He does have a history of hep C. Patient has a slight leukocytosis but his other labs are unremarkable. Discussed with hospitalist for admission for detox and he did accept. Patient is transported in stable condition. Impression: 1. Fentanyl abuse 2. History of hep C 3. Marijuana abuse 4. Methamphetamine abuse
--- NOTE | 2019-12-20 21:26 | CM.ED ---
SOCIAL WORK Informant: Dr. Villagran Reason for Consult: Substance Abuse Received call from Meena with [facility] prior to patient's arrival. Met with patient in room. Patient requesting detox from opiates, benzos, and meth. Patient reports spoke with [facility] earlier today. Education provided on [facility] program. Patient states unsure of plans at this time after detox. Updated Dr. Villgaran on the above. Anticipate admission. Call to Meena with [facility] to update patient in ER and anticipate admission. Meena to follow up tomorrow. Plan: Anticipate admission to [facility]. Willian Jain, INSTRUCTOR WEAVING, OUTDOOR STUDIES PROFESSOR
[2019-12-20 21:53] LABS: Absolute Lymphocyte Count 2.38 X10^3/uL (0.83-4.51); Basophil# 0.12 X10^3/uL; Eosinophil# 0.62 X10^3/uL; Eosinophils% 5.3 % (0-5); Hematocrit 42.9 % (40-54); Hemoglobin 13.6 g/dL (13.0-16.5); Lymphocyte # 2.38 X10^3/ul (4.0); Lymphocyte % 20.2 % (19-41); Mean Corp Hgb Conc 31.7 g/dL (32-36); Mean Corpuscular Hgb 28.6 pg (27.0-32.0); Mean Corpuscular Volume 90.3 fL (80-94); Mean Platelet Vol. 10.2 fl (6.2-12.0); Monocyte# 0.57 X10^3/uL; Monocyte% 4.8 % (0-10); NRBC Flagged by Analyzer 0 % (0-5); Neutrophil # 8.01 X10^3/uL (2.7-7.7); Neutrophil % 68.2 % (47-70); Platelet Count 351 K/mm3 (150-450); RBC Distribution Width CV 15.2 % (11.6-14.6); RBC Distribution Width SD 50.8 fl (35.1-43.9); Red Blood Count 4.75 M/mm3 (4.6-6.2); White Blood Count 11.8 K/mm3 (4.4-11.0)
[2019-12-20 22:07] LABS: Alcohol, Blood (Medical)-Serum < 3.0 mg/dL
[2019-12-20 22:09] LABS: Amphetamine Urine VISTA POSITIVE (<1000 ng/mL); Barbiturate Urine VISTA NEGATIVE (< 200 ng/mL); Benzodiazepine Urine VISTA NEGATIVE (< 200 ng/mL); Cocaine Urine VISTA POSITIVE (< 300 ng/mL); Ecstacy Urine VISTA NEGATIVE (< 500 ng/mL); Methadone Urine VISTA NEGATIVE (< 300 ng/mL); PCP Urine VISTA NEGATIVE (< 25 ng/mL); THC Urine VISTA POSITIVE (< 50 ng/mL); Vista UDS pH Range 6
[2019-12-20 22:12] LABS: ALB/GLOB Ratio 0.8 RATIO (0.9-2.4); AST(SGOT) 52 U/L (15-37); Alanine Aminotransfer ALT/SGPT 151 U/L (16-61); Albumin, Serum 3.6 g/dL (3.2-5.0); Alkaline Phosphatase 126 U/L (45-117); Anion Gap 7 (5-15); BUN 11 mg/dL (7-18); BUN/Creat Ratio 10.9 RATIO (10-20); Calcium,Total 9.2 mg/dL (8.5-10.1); Chloride 108 mmol/L (98-107); Creatinine, Serum 1.01 mg/dL (0.70-1.30); EST Glomerular Filtration Rate 93 mL/min (>60); Est Glom Filt Rate - Afr Amer 113 mL/min (>60); Estimated Creatinine Clearance 113.97 ml/min; Globulin 4.8 g/dL (2.2-4.2); Glucose 144 mg/dL (74-106); Potassium 4.1 mmol/L (3.5-5.1); Protein, Total 8.4 g/dL (6.4-8.2); Sodium Level 137 mmol/L (136-145)
[2019-12-20 22:54] VITALS: BP 130/77; PULSE 69; RESP 15; TEMP 36.6; O2SAT 96
--- NOTE | 2019-12-20 22:58 | PCM.HP.STD ---
Problem List (1) Polysubstance abuse Status: Chronic (2) Heroin abuse Status: Chronic (3) Cocaine abuse Status: Chronic (4) Methamphetamine abuse Status: Chronic (5) Inhalant abuse Status: Chronic (6) Tobacco use Status: Chronic (7) Hepatitis C Status: Chronic Qualifiers: Viral hepatitis chronicity: unspecified Hepatic coma status: without hepatic coma Qualified Code(s): B19.20 - Unspecified viral hepatitis C without hepatic coma (8) History of benzodiazepine use Status: Chronic (9) Opiate withdrawal Status: Acute History of Present Illness Date of Admission: 12/20/19 Chief Complaint: Desire for detoxification. The patient is a 29 year old M with a significant history of polysubstance abuse and tobacco abuse and hepatitis C who presents emergency department with a desire to detoxify from drugs. Patient reports that he has been using Xanax; methamphetamine and fentanyl. The last time he used drugs was on the morning before presentation. Patient presented at emergency department at about 9 PM on the day of presentation. He uses Xanax 8 mg daily. He snorts Xanax. He uses 1 g of methamphetamine daily. He shoots the methamphetamine. He uses 45 g of fentanyl daily. He shoots the fentanyl. While at emergency department he reported early stages of withdrawal. He reports his withdrawal symptoms as restless legs, anxiety and feeling fidgety. Report that sometime this year he was admitted at [facility] where he also underwent detoxification. Report that he reportedly had elevated liver enzymes at that time and the etiology of his elevated liver enzymes was unclear. Of note patient has hepatitis C as above. Patient was admitted on 06/14/2018 at hospital and left AMA on 06/16/2018. At that time he was admitted for polysubstance abuse. On his presentation he reports that he is motivated because of a friend who has from substance abuse. Past Medical History Past Medical History (Chronic Problems): Chronic Problems (This Medical Record has been edited. Action required.) Polysubstance abuse (Chronic) Heroin abuse (Chronic) Cocaine abuse (Chronic) Methamphetamine abuse (Chronic) Inhalant abuse (Chronic) Tobacco use (Chronic) Hepatitis C (Chronic) History of benzodiazepine use (Chronic) Allergies bee venom protein (honey bee) Allergy (Unknown, Verified 12/20/19 21:05) Anaphylaxis Home Medications: Ambulatory Orders Medication Instructions Recorded NK 06/14/18 Surgical History: - - Patient notes prior jaw surgery, had wired shut as well. Psychiatric History: No pertinent psych hx Lives: Alone Smoking Status: Current every day smoker Tobacco Use: Cigarettes Drugs: Cocaine, Marijuana, - - Methamphetamine, Xanax, fentanyl - *Family History Maternal History Items: - - Patient notes a maternal and paternal family history of substance abuse including heroin, meth and cocaine. His mother has currently been clean and sober for several years and lives with his grandmother. Paternal History Items: - - Patient notes a maternal and paternal family history of substance abuse including heroin, meth and cocaine. Patient notes that his father passed secondary to complications related with drug abuse. Review of Systems Constitutional: Denies: Chills, Fever, Weight Change HEENT: Denies: Head Aches, Sinus Congestion, Sinus Drainage Cardiovascular: Denies: Chest Pain, Palpitations Respiratory: Denies: Cough, Shortness of breath at rest, Sputum production Gastrointestinal: Denies: Abdominal Pain, Nausea, Vomiting Genitourinary: Denies: Dysuria Musculoskeletal: Denies: Joint Pain, Joint Tenderness Skin: Denies: Rash, Wounds Neurological: Denies: Numbness, Tingling, Focal weakness Psychiatric: Reports: Anxiety. Denies: Depression, Homicidal Ideations, Suicidal Ideations Hematologic/ Lymphatic: Denies: Easy Bruising, Easy Bleeding VTE Information - Inpt Only VTE Present on Admission: No VTE Mechan Device Prophylaxis: None VTE Pharm Prophylaxis ordered?: No Reason prophylaxis not ordered:: Treatment Not Indicated - Low risk, encouraged to ambulate - Physical Exam Vitals/I&O's: Vital Signs Temp Pulse Resp BP Pulse Ox 98.0 F 60 14 146/87 H 100 12/20/19 21:04 12/20/19 21:04 12/20/19 21:04 12/20/19 21:04 12/20/19 21:04 Oxygen Delivery Method Room Air Weight: 74 kg Body Mass Index (BMI) 20.9 General: Alert, Oriented x3, Cooperative HEENT: Atraumatic, PERRLA, EOMI, Normocephalic Neck: Supple, No JVD, Negative Carotid Bruits Lungs: Clear to auscultation, Normal air movement Cardiovascular: Regular rate, Normal S1, Normal S2, No murmurs Abdomen: Bowel Sounds Present, Soft, Non Tender Extremities: No edema, Capillary Refill Less than 3 Seconds Skin: No rashes, No breakdown, - - Needle track stokes. Musculoskeletal: No Tenderness to Palpation of Joints or Extremities Neurological: Cranial nerves II-XII grossly intact Psych/Mental Status: Anxious, Restless, - - Patient was seen moving his legs repeatedly in bed. Laboratory Results 12/20/19 21:44: WBC 11.8 H, RBC 4.75, Hgb 13.6, Hct 42.9, MCV 90.3, MCH 28.6, MCHC 31.7 L, RDW Std Deviation 50.8 H, RDW Coeff of Babar 15.2 H, Plt Count 351, MPV 10.2, Immature Gran % (Auto) 0.500, Neut % (Auto) 68.2, Lymph % (Auto) 20.2, Quay % (Auto) 4.8, Eos % (Auto) 5.3 H, Baso % (Auto) 1.0, Absolute Neuts (auto) 8.0 H, Absolute Lymphs (auto) 2.38, Nucleated RBC % 0 12/20/19 21:44: Sodium 137, Potassium 4.1, Chloride 108 H, Carbon Dioxide 22.0, Anion Gap 7, BUN 11, Creatinine 1.01, Estim Creat Clear Calc 113.97, Est GFR (MDRD) Af Amer 113, Est GFR (MDRD) Non-Af 93, BUN/Creatinine Ratio 10.9, Glucose 144 H, Calcium 9.2, Total Bilirubin 0.40, AST 52 H, ALT 151 H, Alkaline Phosphatase 126 H, Total Protein 8.4 H, Albumin 3.6, Globulin 4.8 H, Albumin/Globulin Ratio 0.8 L 12/20/19 21:44: Ethyl Alcohol < 3.0 12/20/19 21:49: Urine Opiates Screen NEGATIVE, Urine Methadone Screen NEGATIVE, Ur Barbiturates Screen NEGATIVE, Ur Phencyclidine Scrn NEGATIVE, Ur Amphetamines Screen POSITIVE H, U Methamphetamin-MDMA NEGATIVE, U Benzodiazepines Scrn NEGATIVE, Urine Cocaine Screen POSITIVE H, U Cannabinoids Screen POSITIVE H, Ur Drug Screen Comment Assessment/Plan All Active Problems (This Medical Record has been edited. Action required.) Opiate withdrawal (Acute) The patient is a 29 year old M with a significant history of polysubstance abuse and tobacco abuse and hepatitis C who presents emergency department with a desire to detoxify from drugs. Polysubstance abuse and withdrawal. Urine drug screen was positive for amphetamines; cocaine and cannabinoids. Counseled. Will start patient on Subutex taper with other adjunctive medications. Hepatitis C infection Noted to have elevated liver enzymes. No further work-up at this time. Tobacco abuse Counseled Declined nicotine patch. DVT prophylaxis Low risk Encouraged to ambulate. Inpatient E&M: 16935 Init Hosp L3
[2019-12-20 23:03] VITALS: BP 130/77; PULSE 69; RESP 15; O2SAT 96
[2019-12-20 23:57] VITALS: BMI 19.5
[2019-12-21 00:02] VITALS: BMI 19.6
[2019-12-21 00:12] VITALS: BP 148/87; PULSE 53; RESP 16; TEMP 36.8; O2SAT 98
[2019-12-21 01:20] VITALS: PULSE 53
[2019-12-21 06:47] LABS: Absolute Lymphocyte Count 3.39 X10^3/uL (0.83-4.51); Absolute Neutrophil Count 6.6 X10^3/uL (2.0-7.7); Basophil# 0.14 X10^3/uL; Basophil% 1.2 % (0-1); Eosinophil# 0.76 X10^3/uL; Eosinophils% 6.5 % (0-5); Hematocrit 44.6 % (40-54); Hemoglobin 13.8 g/dL (13.0-16.5); Lymphocyte # 3.39 X10^3/ul (4.0); Lymphocyte % 29.1 % (19-41); Mean Corp Hgb Conc 30.9 g/dL (32-36); Mean Corpuscular Volume 90.7 fL (80-94); Mean Platelet Vol. 10.4 fl (6.2-12.0); Monocyte# 0.71 X10^3/uL; Monocyte% 6.1 % (0-10); NRBC Flagged by Analyzer 0 % (0-5); Neutrophil # 6.56 X10^3/uL (2.7-7.7); Neutrophil % 56.5 % (47-70); Platelet Count 342 K/mm3 (150-450); RBC Distribution Width SD 50.4 fl (35.1-43.9); Red Blood Count 4.92 M/mm3 (4.6-6.2); White Blood Count 11.6 K/mm3 (4.4-11.0)
[2019-12-21 09:30] VITALS: BP 137/90; PULSE 56; PULSE 59; RESP 16; TEMP 36.9; O2SAT 99
--- NOTE | 2019-12-21 12:35 | PN_ITS ---
Reason for Visit: opiate withdrawal Subjective: Feels like shit. Does not elaborate. Vitals/I&O's: Vital Signs Temp Pulse Resp BP Pulse Ox 36.9 C 56 L 16 137/90 H 99 12/21/19 09:30 12/21/19 09:30 12/21/19 09:30 12/21/19 09:30 12/21/19 09:30 Oxygen Delivery Method Room Air Weight: 69.2 kg Body Mass Index (BMI) 19.5 Intake and Output for Last 24 Hours 12/19/19 12/20/19 12/21/19 23:59 23:59 23:59 Intake Total 560 / 560 Balance 560 / 560 General: Alert, No apparent distress, - - awakes to voice. pulls blanket over head. Declines physical exam. Laboratory Results 12/20/19 21:44: WBC 11.8 H, RBC 4.75, Hgb 13.6, Hct 42.9, MCV 90.3, MCH 28.6, MCHC 31.7 L, RDW Std Deviation 50.8 H, RDW Coeff of Babar 15.2 H, Plt Count 351, MPV 10.2, Immature Gran % (Auto) 0.500, Neut % (Auto) 68.2, Lymph % (Auto) 20.2, [place]uckolls % (Auto) 4.8, Eos % (Auto) 5.3 H, Baso % (Auto) 1.0, Absolute Neuts (auto) 8.0 H, Absolute Lymphs (auto) 2.38, Nucleated RBC % 0 12/20/19 21:44: Sodium 137, Potassium 4.1, Chloride 108 H, Carbon Dioxide 22.0, Anion Gap 7, BUN 11, Creatinine 1.01, Estim Creat Clear Calc 113.97, Est GFR (MDRD) Af Amer 113, Est GFR (MDRD) Non-Af 93, BUN/Creatinine Ratio 10.9, Glucose 144 H, Calcium 9.2, Total Bilirubin 0.40, AST 52 H, ALT 151 H, Alkaline Phosphatase 126 H, Total Protein 8.4 H, Albumin 3.6, Globulin 4.8 H, Albumin/Globulin Ratio 0.8 L 12/20/19 21:44: Ethyl Alcohol < 3.0 12/20/19 21:49: Urine Opiates Screen NEGATIVE, Urine Methadone Screen NEGATIVE, Ur Barbiturates Screen NEGATIVE, Ur Phencyclidine Scrn NEGATIVE, Ur Amphetamines Screen POSITIVE H, U Methamphetamin-MDMA NEGATIVE, U Benzodiazepines Scrn NEGATIVE, Urine Cocaine Screen POSITIVE H, U Cannabinoids Screen POSITIVE H, Ur Drug Screen Comment 12/21/19 06:21: WBC 11.6 H, RBC 4.92, Hgb 13.8, Hct 44.6, MCV 90.7, MCH 28.0, MCHC 30.9 L, RDW Std Deviation 50.4 H, RDW Coeff of Babar 15.0 H, Plt Count 342, MPV 10.4, Immature Gran % (Auto) 0.600, Neut % (Auto) 56.5, Lymph % (Auto) 29.1, Nuckolls % (Auto) 6.1, Eos % (Auto) 6.5 H, Baso % (Auto) 1.2 H, Absolute Neuts ( auto) 6.6, Absolute Lymphs (auto) 3.39, Nucleated RBC % 0 Current Medications Buprenorphine HCl (Buprenorphine Hcl) 0 mg SL Q8H KELLI; Taper Stop: 12/23/19 23:59 Clonidine (Catapres) 0.1 mg PO Q8H PRN PRN PRN Reason: RESTLESSNESS Dicyclomine HCl (Bentyl) 20 mg PO Q6H PRN PRN PRN Reason: Abdominal Discomfort Gabapentin (Neurontin) 300 mg PO Q8H PRN PRN PRN Reason: moderate to severe anxiety Hydroxyzine Pamoate (Vistaril Pamoate Capsule) 50 mg PO Q6H PRN PRN PRN Reason: mild anxiety Loperamide HCl (Imodium) 2 mg PO Q4H PRN PRN PRN Reason: LOOSE STOOLS Methocarbamol (Methocarbamol) 1,500 mg PO Q6H PRN PRN PRN Reason: MUSCLE SPASM Nutritional Formula (Lactose Free) (Ensure Enlive) 120 ml PO 4X/DAY [facility] Last Admin: 12/21/19 09:40 Dose: Not Given Documented by: Ondansetron HCl (Zofran) 8 mg PO Q8H PRN PRN PRN Reason: NAUSEA Senna/Docusate Sodium (Senokot-S, Danika-Colace) 2 tablet PO BID PRN PRN PRN Reason: Constipation Trazodone HCl (Desyrel) 100 mg PO QHS PRN PRN PRN Reason: INSOMNIA STROKE Vital Signs/Narrative: Vital Signs Temp Pulse Resp BP Pulse Ox 12/21/19 09:30 36.9 C 56 L 16 137/90 H 99 Medical Necessity - Tobacco Use Smoking Status: Current every day smoker Tobacco Use: Cigarettes Assessment/Plan All Active Problems (This Medical Record has been edited. Action required.) Opiate withdrawal (Acute) 1. polysubstance abuse * methamphetamines, opiates, THC, cocaine * buprenorphine taper * [facility] evaluation * I am given profound reluctance to interact, I am concerned about his willingness to follow up with addiction treatment after discharge Inpatient E&M: 97205 Subs Hosp L2
[2019-12-21 13:25] VITALS: BP 120/65; PULSE 76; RESP 14; TEMP 37.9; O2SAT 97
[2019-12-21] MEDS: Gabapentin 300 MG Capsule PO (13:29)
[2019-12-21] MEDS: cloNIDine HCl 0.1 MG Tablet PO (13:29)
--- NOTE | 2019-12-21 13:37 | NURSING ---
Actuarial Science Teacher from 180 in room speaking w/patient at this time.
[2019-12-21] MEDS: Buprenorphine HCl 2 MG TAB.SUBL 4 MG SL ×2 (15:49→22:05)
[2019-12-21 18:09] VITALS: BP 117/59; PULSE 79; RESP 14; TEMP 37.9; O2SAT 99
[2019-12-21 21:17] VITALS: BP 133/74; PULSE 65; RESP 16; TEMP 37.4; O2SAT 97
[2019-12-21] MEDS: traZODone 100 MG Tablet PO (21:22)
[2019-12-21] MEDS: Methocarbamol 750 MG Tablet 1500 MG PO (21:22)
[2019-12-21] MEDS: hydrOXYzine PAM 25 MG Capsule 50 MG PO (22:05)
[2019-12-22 02:17] VITALS: BP 134/84; PULSE 68; RESP 18; TEMP 36.9; O2SAT 98
[2019-12-22] MEDS: cloNIDine HCl 0.1 MG Tablet PO (02:24)
[2019-12-22] MEDS: Gabapentin 300 MG Capsule PO (02:24)
--- NOTE | 2019-12-22 03:23 | NURSING ---
This RN in to administer prn Tylenol which pt requested. Pt soundly asleep at this time, no discomfort noted. Will continue to monitor and assess.
[2019-12-22] MEDS: Acetaminophen 500 MG Tablet PO (06:23)
[2019-12-22] MEDS: Buprenorphine HCl 2 MG TAB.SUBL 4 MG SL (06:24)
[2019-12-22 06:39] VITALS: O2SAT 96
[2019-12-22 10:05] VITALS: BP 134/81; PULSE 71; RESP 16; TEMP 36.7; O2SAT 98
--- NOTE | 2019-12-22 10:07 | ADDICTION ---
This press writer attempted to meet with this patient this morning. Patient did not rouse to (3) attempts at verbal queuing. This press writer will attempt to meet with patient tomorrow (12/23/2019).
--- NOTE | 2019-12-22 10:20 | PN_ITS ---
Reason for Visit: opioid withdrawal Subjective: Patient is a 29-year-old gentleman with history of polysubstance abuse admitted with acute opioid withdrawal Objective: GENERAL: cooperative HEENT: Atraumatic; EYES; Anicteric, Normal Conjunctiva NECK; supple, normal thyroid, RESPIRATORY: Diminished to auscultation CARDIOVASCULAR: Regular S1 S2, GI: soft, normoactive bowel sounds, : No Renal angle tenderness; EXTREMITIES: No edema, no clubbing, MUSCULOSKELETAL: no muscle waisting NEURO: Awake; no lateralizing signs. SKIN: No Rash PSYCH; Flat affect Vitals/I&O's: Vital Signs Temp Pulse Resp BP Pulse Ox 98.0 F 71 16 134/81 H 98 12/22/19 10:05 12/22/19 10:05 12/22/19 10:05 12/22/19 10:12/22/19 10:05 Oxygen Delivery Method Room Air Weight: 69.2 kg Body Mass Index (BMI) 19.5 Intake and Output for Last 24 Hours 12/20/19 12/21/19 12/22/19 23:59 23:59 23:59 Intake Total 172 / 1959 480 / 480 Balance 172 / 1959 480 / 480 Current Medications Acetaminophen (Tylenol) 500 mg PO Q8H PRN PRN PRN Reason: Pain Score 1-10/10 Last Admin: 12/22/19 06:23 Dose: 500 mg Documented by: Buprenorphine HCl (Buprenorphine Hcl) 4 mg SL Q8H [facility]; Taper Stop: 12/24/19 14:59 Last Admin: 12/22/19 06:24 Dose: 4 mg Documented by: Clonidine (Catapres) 0.1 mg PO Q8H PRN PRN PRN Reason: RESTLESSNESS Last Admin: 12/22/19 02:24 Dose: 0.1 mg Documented by: Dicyclomine HCl (Bentyl) 20 mg PO Q6H PRN PRN PRN Reason: Abdominal Discomfort Gabapentin (Neurontin) 300 mg PO Q8H PRN PRN PRN Reason: moderate to severe anxiety Last Admin: 12/22/19 02:24 Dose: 300 mg Documented by: Hydroxyzine Pamoate (Vistaril Pamoate Capsule) 50 mg PO Q6H PRN PRN PRN Reason: mild anxiety Last Admin: 12/21/19 22:05 Dose: 50 mg Documented by: Loperamide HCl (Imodium) 2 mg PO Q4H PRN PRN PRN Reason: LOOSE STOOLS Methocarbamol (Methocarbamol) 1,500 mg PO Q6H PRN PRN PRN Reason: MUSCLE SPASM Last Admin: 12/21/19 21:22 Dose: 1,500 mg Documented by: Nutritional Formula (Lactose Free) (Ensure Enlive) 120 ml PO 4X/DAY KELLI Last Admin: 12/22/19 10:04 Dose: Not Given Documented by: Ondansetron HCl (Zofran) 8 mg PO Q8H PRN PRN PRN Reason: NAUSEA Senna/Docusate Sodium (Senokot-S, Danika-Colace) 2 tablet PO BID PRN PRN PRN Reason: Constipation Trazodone HCl (Desyrel) 100 mg PO QHS PRN PRN PRN Reason: INSOMNIA Last Admin: 12/21/19 21:22 Dose: 100 mg Documented by: STROKE Vital Signs/Narrative: Vital Signs Temp Pulse Resp BP Pulse Ox 12/22/19 10:05 98.0 F 71 16 134/81 H 98 12/22/19 06:39 96 Medical Necessity - Tobacco Use Smoking Status: Current every day smoker Tobacco Use: Cigarettes Assessment/Plan All Active Problems (This Medical Record has been edited. Action required.) Opiate withdrawal (Acute) Patient is a 29-year-old gentleman with history of polysubstance abuse admitted with acute opioid withdrawal 1. Acute opioid withdrawal Admitted to regular nursing floor being managed with Subutex for medical stabilization 2. Polysubstance abuse -including opioids, cocaine and cannabinoid counseled on cessation 3. Tobacco dependence - Counseled on cessation, offered nicotine patch for tobacco cravings 4. Chronic hep C ?Patient to follow-up with PCP for subsequent care 5. DVT prophylaxis ?Low risk did encourage early ambulation Inpatient E&M: 72009 Subs Hosp L2
--- NOTE | 2019-12-22 12:59 | PCM.DC.SUM ---
Discharge Date and Diagnosis Date of Admission: 12/20/19 Date of Discharge: 12/22/19 - Primary Discharge Diagnosis Acute Problems: Acute opioid withdrawal - Secondary Discharge Diagnosis Chronic Problems: Chronic Problems (This Medical Record has been edited. Action required.) Polysubstance abuse (Chronic) Heroin abuse (Chronic) Cocaine abuse (Chronic) Methamphetamine abuse (Chronic) Inhalant abuse (Chronic) Tobacco use (Chronic) Hepatitis C (Chronic) History of benzodiazepine use (Chronic) Hospital Course and Treatment Operations: None Summary of Care Provided: Patient is a 29-year-old gentleman with history of polysubstance abuse admitted with acute opioid withdrawal 1. Acute opioid withdrawal Admitted to regular nursing floor being managed with Subutex for medical stabilization ?patient signed out AGAINST MEDICAL ADVICE on day 3 of his admission. Attempt made for patient to rescind his decision proved futile 2. Polysubstance abuse -including opioids, cocaine and cannabinoid counseled on cessation 3. Tobacco dependence - Counseled on cessation, offered nicotine patch for tobacco cravings 4. Chronic hep C ?Patient to follow-up with PCP for subsequent care 5. DVT prophylaxis ?Low risk did encourage early ambulation - Physical Exam Vitals/I&O's: Vital Signs Temp Pulse Resp BP Pulse Ox 98.0 F 71 16 134/81 H 98 12/22/19 10:05 12/22/19 10:05 12/22/19 10:05 12/22/19 10:05 12/22/19 10:05 Oxygen Delivery Method Room Air Weight: 69.2 kg Body Mass Index (BMI) 19.5 Intake and Output for Last 24 Hours 12/20/19 12/21/19 12/22/19 23:59 23:59 23:59 Intake Total 1719 480 / 480 Balance 1719 480 / 480 HEENT: Atraumatic Lungs: Clear to auscultation Cardiovascular: Regular rate, Regular Rhythm Current Medications Acetaminophen (Tylenol) 500 mg PO Q8H PRN PRN PRN Reason: Pain Score 1-10/10 Last Admin: 12/22/19 06:23 Dose: 500 mg Documented by: Buprenorphine HCl (Buprenorphine Hcl) 4 mg SL Q8H [facility]; Taper Stop: 12/24/19 14:59 Last Admin: 12/22/19 06:24 Dose: 4 mg Documented by: Clonidine (Catapres) 0.1 mg PO Q8H PRN PRN PRN Reason: RESTLESSNESS Last Admin: 12/22/19 02:24 Dose: 0.1 mg Documented by: Dicyclomine HCl (Bentyl) 20 mg PO Q6H PRN PRN PRN Reason: Abdominal Discomfort Gabapentin (Neurontin) 300 mg PO Q8H PRN PRN PRN Reason: moderate to severe anxiety Last Admin: 12/22/19 02:24 Dose: 300 mg Documented by: Hydroxyzine Pamoate (Vistaril Pamoate Capsule) 50 mg PO Q6H PRN PRN PRN Reason: mild anxiety Last Admin: 12/21/19 22:05 Dose: 50 mg Documented by: Loperamide HCl (Imodium) 2 mg PO Q4H PRN PRN PRN Reason: LOOSE STOOLS Methocarbamol (Methocarbamol) 1,500 mg PO Q6H PRN PRN PRN Reason: MUSCLE SPASM Last Admin: 12/21/19 21:22 Dose: 1,500 mg Documented by: Nutritional Formula (Lactose Free) (Ensure Enlive) 120 ml PO 4X/DAY KELLI Last Admin: 12/22/19 10:04 Dose: Not Given Documented by: Ondansetron HCl (Zofran) 8 mg PO Q8H PRN PRN PRN Reason: NAUSEA Senna/Docusate Sodium (Senokot-S, Danika-Colace) 2 tablet PO BID PRN PRN PRN Reason: Constipation Trazodone HCl (Desyrel) 100 mg PO QHS PRN PRN PRN Reason: INSOMNIA Last Admin: 12/21/19 21:22 Dose: 100 mg Documented by: Discharge Diet: No Restrictions Home Medications: Medications to take at Discharge NK 06/14/18 Primary Care Physician: Care Physician,No Primary [Primary Care Provider] - Disposition: Against Medical Advice Minutes spent on discharge:: 35 Patient Condition:: Stable Medical Necessity - Tobacco Use Smoking Status: Current every day smoker Tobacco Use: Cigarettes Meaningful Use Info Meaningful Use Diagnoses (Choose all that apply): None applicable Inpatient E&M: 50239 Disch Hosp
== END 2019-12-22 13:05 | disposition left against medical advice (07) | DRG 770 ==
LOC: ED 21:52 → MS3 23:16
PROVIDERS: Admitting Provider Hospitalist; Emergency Provider Student in an Organized Health Care Education/Training Program; Referring Provider Hospitalist; Visit Provider Internal Medicine
DX: F11.23 Opioid dependence with withdrawal (principal); F14.10 Cocaine abuse, uncomplicated; F15.10 Other stimulant abuse, uncomplicated; F18.10 Inhalant abuse, uncomplicated; F17.210 Nicotine dependence, cigarettes, uncomplicated; F13.90 Sedative, hypnotic, or anxiolytic use, unspecified, uncomplicated; F12.10 Cannabis abuse, uncomplicated; B18.2 Chronic viral hepatitis C
CPT/HCPCS: 80053; 80307; 80320; 85025; 99283; 99406; G0480

== ENCOUNTER 2022-07-03 21:09 | Inpatient (IN) | payer MEDICAID, SELFPAY ==
[2022-07-03 21:10] VITALS: BP 114/77; PULSE 72; RESP 16; TEMP 37.2; O2SAT 99; BMI 18.4
--- NOTE | 2022-07-03 22:03 | EDS_ITS ---
HPI History of Present Illness Chief Complaint: Substance Abuse Informant: patient Narrative Narrative: Presenting requesting detox. He states he was at [facility] 3 weeks ago and for 5 days he left due to suboptimal treatment per patient. He went back to IV drug use. He has been using fentanyl since 2012. He started IV use 2020. He uses 4-5 times a day. Reports last 2 months with his IV use there is been differences in how he feels he has been hallucinating more. He reports when he was admitted at [facility] he was told he had benzodiazepines and feels from new drugs 2 months ago. He reports nausea and vomiting when the drugs were off. Reporting his last use was earlier this morning. Denies alcohol. States he has been using due to chronic low back pain since he was 10 years old. He has had work-up stating was negative. He denies any serious infection due to IV drug use. He states has been worked up for endocarditis and negative. Also reports concern abscess of the left distal forearm for the past month, denies injecting in the site. He states concern for insect bite previously. He has been treated with oral antibiotics. He has had no fevers. Also reports previous meth use last used 4 days ago. Denies suicidal homicidal ideations. He is currently staying with a friend down to this area. He has not been to this hospital. Prior similar symptoms: Yes PFSH PFSH Medical History Anxiety and depression Bipolar disorder Hepatitis C Kidney stones Polysubstance abuse Tobacco use Home Medications NK 06/14/18 [History Last Taken Unknown] Allergy/AdvReac Type Severity Reaction Status Date / Time bee venom protein (honey bee) Allergy Unknown Anaphylaxis Verified 07/03/22 21:12 Social History Smoking Status: Current every day smoker tobacco type: cigarettes ROS ROS ED Constitutional Constitutional ED: Denies chills, fever(s) or sweats Eyes Eyes: Denies change in vision ENT ENT ED: Denies dysphagia or sore throat Cardiovascular Cardiovascular: Denies chest pain, leg edema, palpitations or racing heartbeat Respiratory/Chest Respiratory/Chest: Denies cough, dyspnea or dyspnea on exertion Gastrointestinal Gastrointestinal: Denies abdominal pain, diarrhea, nausea or vomiting Genitourinary Genitourinary ED: Denies dysuria, hematuria or urinary frequency Musculoskeletal Musculoskeletal: Denies back pain, extremity pain or neck pain Integumentary Denies rash or wounds Neurologic Neurologic: Denies headache(s), paresthesias or weakness EXAM Physical Exam Const Vital Signs: 07/03/22 21:10 Temperature 98.9 F Temperature Source Temporal Pulse Rate 72 Respiratory Rate 16 Blood Pressure 114/77 Blood Pressure Mean 89 Pulse Ox 99 Oxygen Delivery Method Room Air Positive unkempt General Appearance ED: unkempt and NAD HEENT Reports moist mucous membranes normocephalic and atraumatic Eyes PERRL, EOMs intact bilaterally and conjunctivae normal General Eye ED: Yes normal appearance of both eyes Neck no lymphadenopathy and supple General: Negative for tenderness Chest Wall Chest: Negative for tenderness Resp normal respiratory effort and normal air movement Effort and Inspection: symmetric chest movement; Negative for respiratory distress Cardio regular rate, regular rhythm and no murmurs Peripheral Pulses: pulses 2+ throughout GI normal to inspection, nondistended, normoactive bowel sounds and non-tender Palpation: Negative for guarding or rebound tenderness present Back/Spine no CVA tenderness and no thoracic nor lumbar tenderness Extremity normal to inspection General Extremety ED: Negative for edema or tenderness General Extremity: Negative for edema Neuro oriented x3 and no sensory deficits noted Sensorium / Orientation: awake and alert Psych Appearance: unkempt Skin Skin Narrative: Lateral MTP region with scattered punctures and indurations, there is no drainage or erythema. Left forearm distal volar aspect 3 x 1.5 cm fluctuance, no drainage no erythema no indurations. MDM MDM MDM Narrative Medical decision making narrative: Interventions / MDM: Differential diagnosis: Polysubstance abuse, opiate dependence, left forearm abscess, IV drug abuse Diagnosis considered but do not suspect: N/A My EKG interpretation: N/A Imaging independently reviewed and interpreted by myself: 2 view left forearm: No radiopaque foreign body soft tissue swelling volar distal forearm. External documents reviewed: N/A Test considered but not ordered:N/A ED course: Patient here for opiate dependence for assistance. Has history of polysubstance use. Concern for left forearm abscess, he states his region was admitted a month ago swollen up to his proximal forearm he was on antibiotics however there is no incision and drainage. No fevers. X-rays negative for any radiopaque foreign bodies. This was incised and drained there is more clear liquid and white tissue subsidence likely from collection abscess previously. Wound culture was sent. No surrounding erythema, treatment from I&D was definitive treatment at this time. Med clearance labs were obtained and results. I discussed with hospitalist Dr. Cortez for admission for opiate dependence and wanting detox. Procedure note: Incision and drainage: Verbal consent. Normal sterile conditions. Area was prepped with alcohol, 4 cc 1% lidocaine used for local analgesia. Betadine prep of the skin, 11 blade straight incision clear drainage with tissues, loculations broken with hemostats. Normal saline flushes 100 cc of fluid. Fluctuance flattened with residual induration. Patient tolerated procedure well. Dressing was placed by myself. Re-evaluation: stable Disposition discussed with patient/family/significant other: Patient Case discussed with consulting clinician: N/A Radiography Diagnostic Testing: Clinical Impression(s) from Imaging Studies Forearm X-Ray 07/03/22 22:40 IMPRESSION: Distal forearm flexor surface focal soft tissue swelling without obvious foreign body. No acute osseous abnormality of the left forearm. Electronically Signed: Carlos Rapp MD at 22:59 EDT , Discharge Plan Dx/Rx/DC Orders Clinical Impression: Opioid dependence, Polysubstance abuse, Abscess of forearm, left Disposition Disposition: Acute Care [facility]
--- NOTE | 2022-07-03 22:40 | RAD_ITS ---
INDICATION: abscess -- distal forearm EXAMINATION/TECHNIQUE: X-RAY - LEFT XR Forearm 2 Views COMPARISON: None. FINDINGS: 2 views of the left forearm. BONES: Normal anatomic alignment without evidence of fracture or subluxation. No concerning bony lesion or abnormal sclerosis to suggest lesion. JOINTS: No significant degenerative change. SOFT TISSUES: Distal forearm flexor surface focal soft tissue swelling without obvious foreign body. RAD/Forearm 2 Views IMPRESSION: Distal forearm flexor surface focal soft tissue swelling without obvious foreign body. No acute osseous abnormality of the left forearm. Electronically Signed: Carlos Rapp MD at 22:59 EDT ,
--- NOTE | 2022-07-03 23:35 | HP.PCM_ITS ---
HPI - General General Date of Admission: 07/03/22 Date of Service: 07/03/22 Chief Complaint: Acute Opiate Withdrawal HPI Narrative The patient is a 32 y/o M w/ PMHx: Hepatitis C, Tobacco use, Polysubstance abuse (Cocaine, heroin, methamphetamine, inhalant abuse, Hx BZD prior) who presents to the [facility] ED on 07/03/22 w/ noted acute opiate withdrawal onset starting prior to ED presentation following last dose early AM on day of presentation with onset acute opiate withdrawal symptoms including nausea without emesis, abdominal cramping, generalized body aches, rhinorrhea, agitation, diaphoresis and restlessness. He notes most recent methamphetamine usage approximately 4 days prior to current presentation. He also reports LUE forearm indurated region with redness and fluctuance ongoing for ~ 4 weeks with self admitted concerns of possible abscess with prior oral abx therapy treatment but no I+D. Patient interested in attaining clean status although he reports that he previously been at [facility] 3 weeks prior for approximately 5 days for substance abuse and reportedly left secondary to dissatisfaction with his treatment and immediately went back to IV drug abuse. Work-up in the ED included T98.9, heart rate 72, BP 114/77, respiratory rate 16, 99% on room air, plain film of the left upper extremity forearm with the distal forearm flexor surface focal soft tissue swelling without any obvious foreign body or any osseous abnormality of the forearm, I&D performed per ED physician with pending wound and MRSA wound culture. Additionally pending upon evaluation CBC, BMP, alcohol level, UDS. We will add liver profile concurrently. [facility] Medical History Anxiety and depression Bipolar disorder Hepatitis C Kidney stones Polysubstance abuse Tobacco use Home Medications NK 06/14/18 [History Last Taken Unknown] Allergy/AdvReac Type Severity Reaction Status Date / Time bee venom protein (honey bee) Allergy Unknown Anaphylaxis Verified 07/03/22 21:12 Family History (Updated 07/03/22 @ 23:[address] Jennie Cortez MD) Father Alcohol abuse Anxiety and depression Mother Heroin abuse Anxiety and depression Surgical History (Updated 07/03/22 @ 23:[address] Jennie Cortez MD) History of mandibular surgery Social History (Updated 07/03/22 @ 23:[address] Jennie Cortez MD) household members: friend(s) Smoking Status: Current every day smoker tobacco type: cigarettes Smoking packs per day: 0.5 Smoking cigarettes per day: 10.0 alcohol intake: current alcohol intake frequency: a few times a month substance use type: marijuana, heroin, amphetamines, opiates and IV drugs ROS ROS Narrative Admission Review of Systems: CONSTITUTIONAL: No weight loss, fever, chills, + weakness or fatigue. HEENT: + Congestion, rhinorrhea. Eyes: No visual loss, blurred vision, double vision or yellow sclerae. Ears, Nose, Throat: No hearing loss, sneezing, sore throat. SKIN: + Left upper extremity forearm with fluctuant reddened mildly indurated region as well as various staged ecchymoses, abrasions possible track stokes CARDIOVASCULAR: No chest pain, chest pressure or chest discomfort, palpitations, edema, orthopnea, syncopal events. RESPIRATORY: No shortness of breath, cough or sputum, wheezing, hemoptysis. GASTROINTESTINAL: + anorexia, nausea without vomiting, abdominal cramping/pain. No diarrhea, melena, BRBPR. GENITOURINARY: No dysuria, frequency, urgency or retention. NEUROLOGICAL: No headache, dizziness, syncope, paralysis, ataxia, numbness or tingling in the extremities, focal weakness, change in bowel or bladder control, seizure. MUSCULOSKELETAL: + muscle, back pain, joint pain or stiffness. HEMATOLOGIC: No anemia, bleeding or bruising. LYMPHATICS: No enlarged nodes. No history of splenectomy. PSYCHIATRIC: + history of depression or anxiety. ENDOCRINOLOGIC: + reports of sweating. No cold or heat intolerance. No polyuria or polydipsia. ALLERGIES: + History of bee venom anaphylaxis. Vital Signs Vital Signs Vital Signs: 07/03/22 21:10 Temperature 98.9 F Temperature Source Temporal Pulse Rate 72 Respiratory Rate 16 Blood Pressure 114/77 Blood Pressure Mean 89 Pulse Ox 99 Oxygen Delivery Method Room Air Weight Weight: 147 lb 8 oz Body Mass Index (BMI) 18.4 Physical Exam Narrative Physical Examination: General: Awake, alert, oriented x 3 and cooperative, seated upright in the ED bed, mildly agitated, fatigued, disheveled and unkempt. Skin: Normal color, normal turgor, no icterus, no cyanosis except for various abrasions, possible track stokes, left forearm with approximate silver dollar sized region of induration, fluctuant, mild erythema but no tracking and not markedly tender to palpation. HEENT: AT/NC, EOMI, PERRLA, moderate dry MM, no carotid bruits or JVD noted. Lungs: CTA bilaterally, moderate effort, mild decrease BL bases, no rales, ronchi or wheezing. Heart: Currently regular rate and rhythm; no gallop, rub audible. Abdomen: Soft, mild generalized discomfort with palpation but no rebound or guarding, ND, mildly hyperactive BS, +HM. Extremities: No cyanosis, clubbing, or edema, see skin. Neurological: Patient awake, alert, oriented as noted, cognitive function intact; pupils equally reactive to light and accommodation, cranial nerves II- XII grossly normal, moving all 4 extremities, no focal deficits, strength mildly to moderately global decrease secondary to acute opiate withdrawal presentation. Psychiatric: Affect appears restless, mildly agitated, no acute evidence of depressive or anxiety feelings but does have underlying history. Assessment & Plan Assessment/Plan (1) Abscess of forearm, left: (2) Opiate withdrawal: PLAN: Plan The patient is a 32 y/o M w/ PMHx: Hepatitis C, Tobacco use, Polysubstance abuse (Cocaine, heroin, methamphetamine, inhalant abuse, Hx BZD prior) who presents to the [facility] ED on 07/03/22 w/ noted acute opiate withdrawal onset starting prior to ED presentation following last dose early AM on day of presentation with onset acute opiate withdrawal as well as compalint of LUE forearm indurated region with redness and fluctuance ongoing for ~ 4 weeks. #1. Acute Opiate Withdrawal: Will admit to [facility], routine labs pending upon requested evaluation of patient, will initiate and continue on protocol with tapering course of Subutex, as needed tylenol, ibuprofen, bowel regimen, gabapentin, Bentyl, Vistaril, methocarbamol, clonidine, PRN nightly trazodone for insomnia, IV fluids, IV antiemetics. Once patient clinically improved and completion of taper nearing will plan consultation with case management for transition to next level of rehabilitation care. #2. Left upper extremity forearm cellulitis, abscess associated with IV drug abuse: We will maintain on oral Keflex and Bactrim, will obtain Wound Cx and wound MRSA PCR, plan repeat CBC in AM, continue affected extremity elevation above heart when seated and in bed, monitor erythema outline with VS checks, if worsens low threshold to transition to intravenous antibiotic therapy. #3. Polysubstance Abuse, IVDA Hx, History of Hepatitis C, Chronic: Patient currently not candidate for hep C treatment currently as needs to be clean, sober x 6 months, documented attendance NA or AA meetings, counseling and ongoing negative drug screens. HIV, hepatitis panel to assess for co-infection pending. #4. Tobacco Abuse: Encouraged cessation, inpatient consultation per RT, NR if desired. #5. DVT prophylaxis: Low risk, encourage ambulation. #6. CODE STATUS: Full code. Admission Evaluation Time spent evaluating chart, patient history, patient eval uation, care planning and discussion with specialists: 75 minutes. Charges/Coding Visit Charges Inpatient E&M: 62195 Init Hosp L3
[2022-07-03] MEDS: Lidocaine 1% (20 ml mdv) 20 ML Vial INFILT (23:50)
[2022-07-04] VITALS (7 sets, daily range): BP systolic 102–138; BP diastolic 46–84; PULSE 57–90; RESP 16–17; TEMP 36.4–37.3; O2SAT 95–98; BMI 18.1
[2022-07-04 00:12] LABS: Absolute Neutrophil Count 3.9 X10^3/uL (2.0-7.7); Basophil# 0.06 X10^3/uL; Basophil% 0.8 % (0-1); Eosinophil# 0.43 X10^3/uL; Eosinophils% 5.9 % (0-5); Hematocrit 36.9 % (40-54); Hemoglobin 11.3 g/dL (13.0-16.5); Lymphocyte % 32.8 % (19-41); Mean Corp Hgb Conc 30.6 g/dL (32-36); Mean Corpuscular Hgb 28.1 pg (27.0-32.0); Mean Corpuscular Volume 91.8 fL (80-94); Mean Platelet Vol. 9.8 fl (6.2-12.0); Monocyte# 0.45 X10^3/uL; Monocyte% 6.2 % (0-10); NRBC Flagged by Analyzer 0 % (0-5); Neutrophil # 3.94 X10^3/uL (2.7-7.7); Neutrophil % 53.9 % (47-70); Platelet Count 294 K/mm3 (150-450); RBC Distribution Width CV 14.4 % (11.6-14.6); RBC Distribution Width SD 48.9 fl (35.1-43.9); Red Blood Count 4.02 M/mm3 (4.6-6.2); White Blood Count 7.3 K/mm3 (4.4-11.0)
[2022-07-04 00:34] LABS: AST(SGOT) 26 U/L (15-37); Alanine Aminotransfer ALT/SGPT 28 U/L (16-61); Albumin, Serum 3.3 g/dL (3.2-5.0); Alkaline Phosphatase 64 U/L (45-117); Anion Gap 1 (5-15); BUN 16 mg/dL (7-18); BUN/Creat Ratio 16.5 RATIO (10-20); Bilirubin, Direct 0.09 mg/dL (0.00-0.30); Calcium,Total 8.9 mg/dL (8.5-10.1); Chloride 110 mmol/L (98-107); Creatinine, Serum 0.97 mg/dL (0.70-1.30); EST Glomerular Filtration Rate 96 mL/min (>60); Est Glom Filt Rate - Afr Amer 116 mL/min (>60); Estimated Creatinine Clearance 104.42 ml/min; Globulin 3.7 g/dL (2.2-4.2); Glucose 97 mg/dL (74-106); Potassium 3.5 mmol/L (3.5-5.1); Sodium Level 142 mmol/L (136-145)
[2022-07-04 00:38] LABS: Amphetamine Urine VISTA POSITIVE (<1000 ng/mL); Barbiturate Urine VISTA NEGATIVE (< 200 ng/mL); Benzodiazepine Urine VISTA POSITIVE (< 200 ng/mL); Cocaine Urine VISTA POSITIVE (< 300 ng/mL); Ecstacy Urine VISTA POSITIVE (< 500 ng/mL); Methadone Urine VISTA NEGATIVE (< 300 ng/mL); PCP Urine VISTA NEGATIVE (< 25 ng/mL); THC Urine VISTA POSITIVE (< 50 ng/mL); Vista UDS pH Range 5
[2022-07-04 00:47] LABS: Alcohol, Blood (Medical)-Serum < 3.0 mg/dL
[2022-07-04 01:19] LABS: HIV - WCH Non-Reactive (Nonreactive)
[2022-07-04] MEDS: Smz/Tmp Ds Tablet 1 TABLET PO ×3 (01:39→17:22)
[2022-07-04] MEDS: Cephalexin 500 MG Capsule PO ×5 (01:39→22:47)
[2022-07-04 02:49] LABS: Hepatitis B Surface Antibody Reactive; Hepatitis B Surface Antigen Non-Reactive (Nonreactive)
[2022-07-04 02:50] LABS: Hepatitis C Antibody Preliminary Reactive (Nonreactive)
[2022-07-04 06:16] LABS: Absolute Lymphocyte Count 2.47 X10^3/uL (0.83-4.51); Absolute Neutrophil Count 3.7 X10^3/uL (2.0-7.7); Basophil# 0.06 X10^3/uL; Basophil% 0.8 % (0-1); Eosinophil# 0.46 X10^3/uL; Eosinophils% 6.4 % (0-5); Hematocrit 36.5 % (40-54); Hemoglobin 11.3 g/dL (13.0-16.5); Lymphocyte # 2.47 X10^3/ul (0.83-4.51); Lymphocyte % 34.3 % (19-41); Mean Corpuscular Hgb 28.8 pg (27.0-32.0); Mean Corpuscular Volume 92.9 fL (80-94); Mean Platelet Vol. 10.1 fl (6.2-12.0); Monocyte# 0.52 X10^3/uL; Monocyte% 7.2 % (0-10); NRBC Flagged by Analyzer 0 % (0-5); Neutrophil # 3.67 X10^3/uL (2.7-7.7); Neutrophil % 50.9 % (47-70); Platelet Count 265 K/mm3 (150-450); RBC Distribution Width CV 14.4 % (11.6-14.6); RBC Distribution Width SD 49.2 fl (35.1-43.9); Red Blood Count 3.93 M/mm3 (4.6-6.2); White Blood Count 7.2 K/mm3 (4.4-11.0)
[2022-07-04 06:32] LABS: M R Staph aureus DNA By PCR Negative (Negative); Probe Check PASS; Specimen Processing Control PASS; Staph aureus DNA By PCR POSITIVE (Negative)
--- NOTE | 2022-07-04 07:10 | PCM.PN.HOSP ---
Reason for Visit Reason for Visit: Diagnoses Opioid use, unspecified with withdrawal (07/03/22) Cutaneous abscess of left upper limb (07/03/22) Follow-up for acute opioid withdrawal syndrome Subjective Subjective Patient sleepy, lethargy. Crawled in position. Objective Data Objective Data Vital Signs: Vital Signs Temp Pulse Resp BP Pulse Ox O2 Del Method 97.9 F 65 16 111/63 96 Room Air 07/04/22 06:30 07/04/22 06:30 07/04/22 06:30 07/04/22 06:30 07/04/22 06:30 07/04/22 06:30 Oxygen Delivery Method Room Air Weight: 145 lb 4.554 oz Body Mass Index (BMI) 18.1 Intake & Output: Intake and Output for Last 24 Hours 07/02/22 07/03/22 07/04/22 23:59 23:59 23:59 Intake Total 600 / 600 Balance 600 / 600 Lab / Micro Data Result Diagrams: 07/04/22 05:55 07/03/22 23:55 Labs: Laboratory Results - last 24 hr 07/03/22 23:10: S.aureus Protein A PCR POSITIVE H, MRSA (PCR) Negative 07/03/22 23:55: WBC 7.3, RBC 4.02 L, Hgb 11.3 L, Hct 36.9 L, MCV 91.8, MCH 28.1, MCHC 30.6 L, RDW Std Deviation 48.9 H, RDW Coeff of Babar 14.4, Plt Count 294, MPV 9.8, Immature Gran % (Auto) 0.400, Neut % (Auto) 53.9, Lymph % (Auto) 32.8, Simpson % (Auto) 6.2, Eos % (Auto) 5.9 H, Baso % (Auto) 0.8, Absolute Neuts (auto) 3.9, Absolute Lymphs (auto) 2.40, Nucleated RBC % 0 07/03/22 23:55: Sodium 142, Potassium 3.5, Chloride 110 H, Carbon Dioxide 31.0, Anion Gap 1 L, BUN 16, Creatinine 0.97, Estim Creat Clear Calc 104.42, Est GFR (MDRD) Af Amer 116, Est GFR (MDRD) Non-Af 96, BUN/Creatinine Ratio 16.5, Glucose 97, Calcium 8.9, Total Bilirubin 0.20, Direct Bilirubin 0.09, AST 26, ALT 28, Alkaline Phosphatase 64, Total Protein 7.0, Albumin 3.3, Globulin 3.7 07/03/22 23:55: Ethyl Alcohol < 3.0 07/03/22 23:55: Urine Opiates Screen POSITIVE H, Urine Methadone Screen NEGATIVE, Ur Barbiturates Screen NEGATIVE, Ur Phencyclidine Scrn NEGATIVE, Ur Amphetamines Screen POSITIVE H, MDMA (Ecstasy) Screen POSITIVE H, U Benzodiazepines Scrn POSITIVE H, Urine Cocaine Screen POSITIVE H, U Cannabinoids Screen POSITIVE H, Ur Drug Screen Comment 07/03/22 23:55: HIV 1&2 Antibody Non-Reactive 07/03/22 23:55: Hep Bs Antigen Non-Reactive, Hep Bs Antibody Reactive, Hepatitis C Antibody Preliminary Reactive 07/04/22 05:55: WBC 7.2, RBC 3.93 L, Hgb 11.3 L, Hct 36.5 L, MCV 92.9, MCH 28.8, MCHC 31.0 L, RDW Std Deviation 49.2 H, RDW Coeff of Babar 14.4, Plt Count 265, MPV 10.1, Immature Gran % (Auto) 0.400, Neut % (Auto) 50.9, Lymph % (Auto) 34.3, Simpson % (Auto) 7.2, Eos % (Auto) 6.4 H, Baso % (Auto) 0.8, Absolute Neuts (auto) 3.7, Absolute Lymphs (auto) 2.47, Nucleated RBC % 0 Radiography Diagnostic Testing: Radiology Impression Forearm X-Ray 07/03/22 22:40 IMPRESSION: Distal forearm flexor surface focal soft tissue swelling without obvious foreign body. No acute osseous abnormality of the left forearm. Electronically Signed: Carlos Rapp MD at 22:59 EDT , Physical Exam Narrative General: Lethargy, sleepy, eye closed. HEENT: Atraumatic, Normocephalic Oral:oral mucosa dry. No Gingival or Mucosal Lesions/ Ulcerations Neck: Supple, No JVD, Negative Carotid Bruits Lungs: Air entry diminished in bilateral lung bases. No crepitation/rhonchi Cardiovascular: Regular rate, Regular Rhythm, Normal S1, Normal S2, No murmurs Abdomen: Bowel Sounds Present, Soft, Non Tender, Non-Distended : No renal angle tenderness. No suprapubic tenderness. Extremities: No edema, Capillary Refill Less than 3 Seconds Skin: IV track stokes. Left distal forearm, anterior aspect, s/p I & D. No rashes, No breakdown Musculoskeletal: No Tenderness to Palpation of Joints or Extremities Neurological: Cranial nerves II-XII grossly intact, DTR 2+/4 and Symmetrical, Neuro grossly intact Psych/Mental Status: Flat affect Assessment & Plan Assessment/Plan (1) Abscess of forearm, left: (2) Opiate withdrawal: PLAN: Plan The patient is a 32 y/o M was admitted for treatment of acute opioid withdrawal syndrome. Last dose was early in the morning on the day of admission. Has been using fentanyl since 2012. . #1. Acute Opiate Withdrawal syndrome with history of chronic opioid use disorder with tolerance, dependence and relapse: Patient is being admitted on [facility] floor. The patient is started on buprenorphine along with other adjunctive medications as needed for medical stabilization as per order set of opioid withdrawal syndrome. Antiemetics as needed. Trazodone as needed for insomnia/anxiety. automated teller manager 180 consult. #2. Left upper extremity forearm cellulitis, abscess due to with IV drug abuse: The patient had incision and drainage by ED physician. Clear fluid and white substance was exuded. Wound culture was sent. Patient on oral Keflex and Bactrim DS. Pain Liberte method as LUE elevation. Clinical monitoring #3. Polysubstance Abuse, IVDA Hx, History of Hepatitis C, Chronic: Patient last use of methamphetamine 4 days ago. Patient is started on IV use since 2020. #4. Tobacco Abuse: Encouraged cessation, on nicotine patch. #5. DVT prophylaxis: Low risk, encourage ambulation. #6. CODE STATUS: Full code. Charges/Coding Visit Charges Inpatient E&M: 70843 Subs Hosp L2
--- NOTE | 2022-07-04 10:22 | ADDICTION ---
This web content writer met with PT to conduct ASAM, MSE, AUDIT, DUDIT assessments and to plan for d/c. PT A+Ox4 and participated actively. All assessments completed and placed in PT's chart. PT plans to f/u with [facility] for follow-up in patient treatment services if approved. They will call to screen him. [facility] will transport to treatment.
[2022-07-04] MEDS: Ensure Plus High Protein 120 ML LIQUID PO ×2 (14:49→18:51)
[2022-07-04] MEDS: Methocarbamol 750 MG Tablet 1500 MG PO (18:56)
[2022-07-04] MEDS: hydrOXYzine PAM 25 MG Capsule 50 MG PO (18:56)
[2022-07-05] MEDS: Cephalexin 500 MG Capsule PO ×3 (04:53→17:37)
[2022-07-05 04:56] VITALS: BP 136/80; PULSE 69; RESP 16; TEMP 36.9; O2SAT 93
--- NOTE | 2022-07-05 08:08 | PCA ---
Addendum entered by Anastasiia Venegas 07/05/22 12:46: HRO is aware of the missing persons report in [place], has been taken care of appropriately. Original Note: Mother Stephanie Perez called [phone]. Called to make sure that [place] [employer] or [employer] has laid eyes on patient so that the Missing Persons Report that she had filed through [place] could be canceled. She also called to get an update on the patient and discharge plans, this sec made her aware that she is not on the contact list for the patient. She is aware that this Sec. will pass information on to primary nurse, Alaina. RN, and addiction therapist.
[2022-07-05] MEDS: Smz/Tmp Ds Tablet 1 TABLET PO ×2 (09:17→17:00)
[2022-07-05] MEDS: Ensure Plus High Protein 120 ML LIQUID PO ×3 (09:17→22:50)
[2022-07-05] MEDS: Gabapentin 300 MG Capsule PO ×2 (09:20→22:53)
[2022-07-05] MEDS: Acetaminophen 325 MG Tablet 650 MG PO (09:20)
[2022-07-05] MEDS: Methocarbamol 750 MG Tablet 1500 MG PO ×2 (09:21→17:00)
[2022-07-05 09:24] VITALS: BP 136/77; PULSE 73; RESP 17; TEMP 36.6; O2SAT 96
[2022-07-05 10:06] VITALS: O2SAT 96
--- NOTE | 2022-07-05 10:31 | WOUNDNOTE ---
wound photo: left inner forearm
--- NOTE | 2022-07-05 13:18 | PN.HOSP_ITS ---
Reason for Visit Reason for Visit: Diagnoses Opioid use, unspecified with withdrawal (07/03/22) Cutaneous abscess of left upper limb (07/03/22) Subjective Subjective Follow-up for acute opioid withdrawal syndrome. Objective Data Objective Data Vital Signs: Vital Signs Temp Pulse Resp BP Pulse Ox O2 Del Method 97.8 F 73 17 136/77 H 96 Room Air 07/05/22 09:24 07/05/22 09:24 07/05/22 09:24 07/05/22 09:24 07/05/22 10:06 07/05/22 10:06 Oxygen Delivery Method Room Air Weight: 145 lb 4.554 oz Body Mass Index (BMI) 18.1 Intake & Output: Intake and Output for Last 24 Hours 07/03/22 07/04/22 07/05/22 23:59 23:59 23:59 Intake Total 840 / 840 Balance 840 / 840 Medical Nutrition Assessment Dietitian: Malnutrition Criteria Met Start: 07/04/22 10:55 Freq: Status: Active Protocol: Document 07/04/22 10:55 AG (Rec: 07/04/22 10:55 AG [id number]) Nutrition Malnutrition Evidence of Malnutrition Exists Yes Malnutrition (severe): Chronic Evidenced By Suboptimal Energy Intake ( Severe),Weight Loss (Severe), Physical Changes (Moderate) Clinical Problem Chronic Disease or Condition Related Malnutrition Etiology severe, chronic malnutrition related to inadequate energy intake d/t substance abuse Signs/Symptoms as evidenced by unintentional wt loss of ~15#/9% x 2-3 months; estimated PO intake meeting < 75% of estimated energy needs; moderate muscle wasting/fat loss evident per physical exam in obrital, clavicle, acromion, and temporal areas; BMI 18.2 Status Active Problem Recommendation Dietitian Recommendations/Changes continue regular diet w/ snacks TID and ensure plus high protein 120mL 4x/day w/ medpass for additional calories/protein if consumed Lab / Micro Data Result Diagrams: 07/04/22 05:55 07/03/22 23:55 Micro: Microbiology 07/03/22 23:10 Wound - Wrist Gram Stain - Final 07/03/22 23:10 Wound - Wrist Wound Culture - Preliminary Coag Negative Staph Physical Exam Narrative Seen and examined. Patient laying on the floor in restless and disorganized state. Bedsheets are on the floor. Patient sleeping woke up with verbal command. Physical exam: General: Intermittent sleepiness, lethargy. Not confused. HEENT: Atraumatic, Normocephalic. PERRLA, EOMI. Oral:oral mucosa dry. No Gingival or Mucosal Lesions/ Ulcerations Neck: Supple, No JVD, Negative Carotid Bruits Lungs: Air entry diminished in bilateral lung bases. No crepitation/rhonchi Cardiovascular: Regular rate, Regular Rhythm, Normal S1, Normal S2, No murmurs Abdomen: Bowel Sounds Present, Soft, Non Tender, Non-Distended : No renal angle tenderness. No suprapubic tenderness. Extremities: No edema, Capillary Refill Less than 3 Seconds Skin: IV track stokes. Left distal forearm, anterior aspect, s/p I & D. No rashes, No breakdown Musculoskeletal: No Tenderness to Palpation of Joints or Extremities Neurological: Cranial nerves II-XII grossly intact, DTR 2+/4 and Symmetrical, Neuro grossly intact Psych/Mental Status: Flat affect, restless. Anxiety, disorganized behavior. Mildly impulsive. Assessment & Plan Assessment/Plan (1) Abscess of forearm, left: (2) Opiate withdrawal: PLAN: Plan The patient is a 32 y/o M was admitted for treatment of acute opioid withdrawal syndrome. Last dose was early in the morning on the day of admission. Has been using fentanyl since 2012. .#1. Acute Opiate Withdrawal syndrome with history of chronic opioid use disord er with tolerance, dependence and relapse: Patient is being admitted on [facility] floor. The patient is started on buprenorphine along with other adjunctive medications as needed for medical stabilization as per order set of opioid withdrawal syndrome. Antiemetics as needed. Trazodone as needed for insomnia/anxiety. transitional care manager 180 consult. 07/05: Patient is still very sleepy and lethargic wakes up on verbal command. Feeling anxious restless and disorganized state. Discussed with Vj. Will need inpatient substance use rehab. #2. Left upper extremity forearm cellulitis, abscess due to with IV drug abuse: The patient had incision and drainage by ED physician. Clear fluid and white roberts bstance was exuded. Wound culture was sent. Patient on oral Keflex and Bactrim DS. Pain Liberte method as LUE elevation. Clinical monitoring 07/05: Dressing is dry. No tenderness. Continue antibiotic. #3. Polysubstance Abuse, IVDA Hx, History of Hepatitis C, Chronic: Patient last use of methamphetamine 4 days ago. Patient is started on IV use since 2020. #4. Tobacco Abuse: Encouraged cessation, on nicotine patch. #5. DVT prophylaxis: Low risk, encourage ambulation. #6. CODE STATUS: Full code. Charges/Coding Visit Charges Inpatient E&M: 93260 Subs Hosp L2
[2022-07-05 16:50] VITALS: BP 136/85; PULSE 73; RESP 16; TEMP 36.8; O2SAT 98
[2022-07-05] MEDS: Ondansetron 8 MG Tablet PO (17:00)
[2022-07-05] MEDS: hydrOXYzine PAM 25 MG Capsule 50 MG PO (17:00)
[2022-07-05] MEDS: Buprenorphine HCl 2 MG TAB.SUBL 4 MG SL (17:36)
[2022-07-05 20:10] VITALS: BP 141/88; PULSE 76; RESP 18; TEMP 36.6; O2SAT 98
[2022-07-06] MEDS: Cephalexin 500 MG Capsule PO ×3 (00:02→11:41)
[2022-07-06] MEDS: Buprenorphine HCl 2 MG TAB.SUBL 4 MG SL ×2 (01:33→08:51)
[2022-07-06] MEDS: Methocarbamol 750 MG Tablet 1500 MG PO (05:17)
[2022-07-06 05:29] VITALS: BP 139/86; PULSE 63; RESP 16; TEMP 36.8; O2SAT 98
[2022-07-06] MEDS: Ensure Plus High Protein 120 ML LIQUID PO (08:50)
[2022-07-06] MEDS: Smz/Tmp Ds Tablet 1 TABLET PO (08:51)
[2022-07-06] MEDS: Ibuprofen 600 MG Tablet PO (08:54)
[2022-07-06 08:56] VITALS: BP 129/77; PULSE 84; RESP 18; TEMP 36.8; O2SAT 96
[2022-07-06 15:05] VITALS: BP 132/98; PULSE 101; RESP 16; TEMP 37.6; O2SAT 98
--- NOTE | 2022-07-06 15:14 | NURSING ---
Addendum entered by Yanet Garcia 07/06/22 15:14: PERSONAL ITEMS RETURNED TO PT. Original Note: PT REQUESTING TO LEAVE AMA. I'M LEAVING AND THERE'S NO TALKING ME OUT OF IT. DR GREEN NOTIFIED.
--- NOTE | 2022-07-06 15:37 | PCM.DC.SUM ---
Providers Date of Admission: 07/03/22 Date of Discharge: 07/06/22 Primary Care Physician: Dayna Primary Care Phys Consultations 07/05/22 09:52 Consult: Onc/Wound/lace machine operator Routine Comment: Reason for Consult:: left arm i&d Reason For Visit: ACUTE OPIATE WITHDRAWAL, LUE ABSCESS Diagnosis Discharge Diagnosis (1) Abscess of forearm, left: Status: Acute Code(s): L02.414 - Cutaneous abscess of left upper limb (2) Opiate withdrawal: Status: Acute Code(s): F11.93 - Opioid use, unspecified with withdrawal Plan The patient is a 32 y/o M was admitted for treatment of acute opioid withdrawal syndrome. Last dose was early in the morning on the day of admission. Has been using fentanyl since 2012. .#1. Acute Opiate Withdrawal syndrome with history of chronic opioid use disorder with tolerance, dependence and relapse: Patient is being admitted on [facility] floor. The patient is started on buprenorphine along with other adjunctive medications as needed for medical stabilization as per order set of opioid withdrawal syndrome. Antiemetics as needed. Trazodone as needed for insomnia/anxiety. manager biologics 180 consult. 07/05: Patient is still very sleepy and lethargic wakes up on verbal command. Feeling anxious restless and disorganized state. Discussed with Vj. Will need inpatient substance use rehab. 07/06: Patient first time awake alert and coherent. He said he did not know what was happening in last 2 days. Prior to my visit, upper caser and social media sr strategy manager visited the patient and he does not want to go inpatient rehab. I emphasized that it is necessary to prevent recurrent admission and continued opioid dependence but did not agree. Later today he signed AMA. Prescription for cephalexin and Bactrim DS sent to patient's preferred pharmacy, [facility] retail pharmacy. #2. Left upper extremity forearm cellulitis, abscess due to with IV drug abuse: The patient had incision and drainage by ED physician. Clear fluid and white substance was exuded. Wound culture was sent. Patient on oral Keflex and Bactrim DS. Pain Liberte method as LUE elevation. Clinical monitoring 07/05: Dressing is dry. No tenderness. Continue antibiotic. 07/07 patient will rehydrated. #3. Polysubstance Abuse, IVDA Hx, History of Hepatitis C, Chronic: Patient last use of methamphetamine 4 days ago. Patient is started on IV use since 2020. #4. Tobacco Abuse: Encouraged cessation, on nicotine patch. #5. DVT prophylaxis: Low risk, encourage ambulation. #6. CODE STATUS: Full code. The patient was warned against signing AMA. Risk and complications involved. Patient understood but he signed AMA. Total time spent, exact 35 minutes on discharge meds reconciliation, examination, coordination of care with nurses and ancillary staff, review of imaging and blood test and discussion with the patient on follow-up instructions. Medications at Discharge Home Medications cephalexin 500 mg capsule 500 mg PO TID 7 days #15 caps 07/06/22 sulfamethoxazole 800 mg-trimethoprim 160 mg tablet (Bactrim DS) 1 tab PO BID #14 tabs 07/06/22 Weight / BMI Weight Weight: 145 lb 4.554 oz Body Mass Index (BMI) 18.1 ABG / Lab / Microbiology Data Result Diagrams: 07/04/22 05:55 07/03/22 23:55 Microbiology: Microbiology 07/03/22 23:10 Wound - Wrist Gram Stain - Final 07/03/22 23:10 Wound - Wrist Wound Culture - Final Coag Negative Staph Meaningful Use Info Meaningful Use Diagnoses (Choose all that apply): None applicable Discharge Plan Admission Admit Date/Time: 07/03/22 22:32 Attending Provider: Thompson Marie Primary Care Provider: Care Physician,No Primary Consulting Providers: Jennie Cortez Discharge Orders/Prescriptions Prescriptions: New cephalexin 500 mg capsule 500 mg PO TID 7 Days Qty: 15 0RF sulfamethoxazole-trimethoprim [Bactrim DS] 800-160 mg tablet 1 tab PO BID Qty: 14 0RF Referrals / Follow Up: Care Physician,No Primary [Primary Care Provider] - Disposition Disposition (needs filled in before D/C Order can be placed): Against Medical Advice Charges/Coding Visit Charges Inpatient E&M: 34127 Disch Hosp >30min
== END 2022-07-06 15:16 | disposition left against medical advice (07) | DRG 770 ==
LOC: ED 23:06 → PCU 23:11 → MS3 23:26
PROVIDERS: Admitting Provider Family Medicine; Emergency Provider Emergency Medicine; Visit Provider Internal Medicine
DX: F11.23 Opioid dependence with withdrawal (principal); E43 Unspecified severe protein-calorie malnutrition; F19.19 Other psychoactive substance abuse with unspecified psychoactive substance-induced disorder; F12.90 Cannabis use, unspecified, uncomplicated; F17.210 Nicotine dependence, cigarettes, uncomplicated; L02.414 Cutaneous abscess of left upper limb; L03.114 Cellulitis of left upper limb; Z68.1 Body mass index [BMI] 19.9 or less, adult
CPT/HCPCS: 10060; 36415; 73090; 80048; 80076; 80307; 82077; 85025; 86703; 86706; 86803; 87070; 87205; 87340; 87640; 97802; 99283; 99406